=== PATIENT | female | born 1930 | race Caucasian/White ===

== ENCOUNTER 2017-03-01 21:15 | Emergency (ER) | payer MEDICARE, BC ==
--- NOTE | 2017-03-01 21:25 | ED ---
Head Injury - HPI Summary HPI Summary: 86 year old female presents with complains of right sided head injury with perfuse bleeding. I will send her to the ER for a head CT. - History Of Current Complaint Stated Complaint: FALL-HEAD INJURY Time Seen by Provider: 03/01/17 21:19 - Allergies/Home Medications Allergies/Adverse Reactions: Allergies Allergy/AdvReac Type Severity Reaction Status Date / Time Sulfa Antibiotics Allergy Rash Verified 03/01/17 22:45 PMH/Surg Hx/FS Hx/Imm Hx Previously Healthy: Yes - Cancer History Hx Chemotherapy: No Hx Radiation Therapy: Yes - Surgical History Surgery Procedure, Year, and Place: RIGHT LUMPECTOMY 2010 Review of Systems Constitutional: Negative Positive: Fatigue Eyes: Negative ENT: Negative Cardiovascular: Negative Respiratory: Negative Gastrointestinal: Negative Genitourinary: Negative All Other Systems Reviewed And Are Negative: Yes Physical Exam Triage Information Reviewed: Yes Appearance: Positive: Ill-Appearing, Pain Distress Head Injury Course/Dx - Diagnoses Provider Diagnoses: Head injury due to trauma Discharge - Discharge Plan Condition: Guarded Disposition: AGAINST MEDICAL ADVICE Patient Education Materials: Concussion (ED), Fall Prevention (ED) Referrals: Teresa Beal MD [Primary Care Provider] -
[2017-03-01 21:26] VITALS: BP 180/70
== END 2017-03-01 21:34 | disposition left against medical advice (07) ==
LOC: UCEAST 21:15
DX: S09.90XA Unspecified injury of head, initial encounter (principal); W19.XXXA Unspecified fall, initial encounter; Y93.9 Activity, unspecified; Y92.9 Unspecified place or not applicable; Z88.2 Allergy status to sulfonamides; R53.83 Other fatigue
CPT/HCPCS: 99211; G0463

== ENCOUNTER 2017-03-01 22:42 | Emergency (ER) | payer BC, MEDICARE ==
--- NOTE | 2017-03-02 00:38 | ED ---
Head Injury - HPI Summary HPI Summary: 86 female presents from [facility] with complaints of sustaining a head injury just prior to arrival around 7:30pm. She was gardening and rolling a bird cage, bending over and took a tumble striking the right front scalp on the corner of her house. She sustained a small laceration from the impact that she attempted to stop the bleeding with a band-aid however was unsuccessful. Admits to some bruising at area of impact. Bleeding has since subsided. Patient denied visual changes, LOC, memory loss, nausea, vomiting and headache. Denies anticoagulant use. No PMHx or medication. Denies any pain other than a slight ache in the right lower rib area. Patient states she thinks she hit it on a small metal fencing that surrounds her garden. Movement and palpation makes this pain worse. Denies pain on deep breaths. No other complaints at this time. - History Of Current Complaint Chief Complaint: EDHeadache Stated Complaint: FALL/HEAD INJURY Time Seen by Provider: 03/01/17 22:51 Hx Obtained From: Patient Mechanism Of Injury: Blunt Trauma - on corner of house Onset/Duration: Started Hours Ago, Traumatic, Still Present Onset of Pain: Immediate Severity Currently: None Severity Initially: Mild Pain Intensity: 0 Pain Scale Used: 0-10 Numeric Location of Head Injury: Frontal - right, Parietal - right Location: Discrete At: - right frontal scalp Character: Dull Associated Signs And Symptoms: Negative, Bruising - Allergies/Home Medications Allergies/Adverse Reactions: Allergies Allergy/AdvReac Type Severity Reaction Status Date / Time Sulfa Antibiotics Allergy Rash Verified 03/01/17 22:45 PMH/Surg Hx/FS Hx/Imm Hx Endocrine/Hematology History: Denies: Hx Anticoagulant Therapy Cardiovascular History: Denies: Hx Hypertension Respiratory History: Denies: Hx Asthma - Cancer History Hx Chemotherapy: No Hx Radiation Therapy: Yes - Surgical History Surgery Procedure, Year, and Place: RIGHT LUMPECTOMY 2010 - Immunization History Date of Tetanus Vaccine: UTD per patient Immunizations Up to Date: Yes Infectious Disease History: No Infectious Disease History: Denies: Hx Clostridium Difficile, Hx Hepatitis, Hx Human Immunodeficiency Virus (HIV), Hx of Known/Suspected MRSA, Hx Shingles, Hx Tuberculosis, Hx Known/ Suspected VRE, Hx Known/Suspected VRSA, History Other Infectious Disease, Traveled Outside the [place] in Last 30 Days - Family History Known Family History: Positive: None - Social History Alcohol Use: Daily Alcohol Amount: 1 glass wine Substance Use Type: Reports: None Smoking Status (MU): Never Smoked Tobacco Review of Systems Constitutional: Negative Positive: Other - right rib tenderness Respiratory: Negative Gastrointestinal: Negative Musculoskeletal: Negative Positive: Other - laceration Neurological: Negative All Other Systems Reviewed And Are Negative: Yes Physical Exam Triage Information Reviewed: Yes Vital Signs On Initial Exam: Initial Vitals Temp Pulse Resp BP Pulse Ox 98.1 F 74 16 152/61 98 03/01/17 22:48 03/01/17 22:48 03/01/17 22:48 03/01/17 22:48 03/01/17 22:48 Vital Signs Reviewed: Yes Appearance: Positive: Well-Appearing, No Pain Distress, Well-Nourished Skin: Positive: Warm, Skin Color Reflects Adequate Perfusion, Dry, Other - 1.5- 2cm laceration at right frontal scalp no bleeding or FB. very superficial epidermal layer. linear without complication. Negative: Cold, Numb, Cyanosis @ , Pale, Erythema @ Head/Face: Positive: Normal Head/Face Inspection, Scalp - bruising and small hematoma noted at right front scalp at area of laceration from impact. rest of scalp normal., Other - no epistaxis, battles signs, racoon eyes or facial bone tenderness Eyes: Positive: EOMI, ROBE, Conjunctiva Clear ENT: Positive: Normal ENT inspection, Hearing grossly normal, Pharynx normal, TMs normal Dental: Positive: Other - did not bite tongue, no dental fractures Neck: Positive: Supple, Nontender Respiratory/Lung Sounds: Positive: Clear to Auscultation, Breath Sounds Present. Negative: Rales, Rhonchi, Wheezes Cardiovascular: Positive: Normal, RRR, Pulses are Symmetrical in both Upper and Lower Extremities. Negative: Murmur, Rub Bowel Sounds: Positive: Present Musculoskeletal: Positive: Normal, Strength/ROM Intact, Pain @ - minimal, at right lower rib 12 area on palpation no sign of obvious deformity, crepitus or step off Neurological: Positive: Normal, Sensory/Motor Intact, Alert, Oriented to Person Place, Time, CN Intact II-III, Reflexes Intact, NV Bundle Intact Distally, Normal Gait Psychiatric: Positive: Affect/Mood Appropriate - [place] Coma Scale Best Eye Response: 4 - Spontaneous Best Motor Response: 6 - Obeys Commands Best Verbal Response: 5 - Oriented Coma Scale Total: 15 Procedures - Laceration/Wound Repair 1 Location: head - frontal scalp Description: Linear Length, Depth and Shape: 1.5-2cm, linear, superficial epidermal layer Betadine Prep?: No Irrigated w/ Saline (ccs): 200 Laceration/Wound Explored: clean, no foreign body removed Closure: Ruben #__ - 2 Sterile Dressing Applied?: Yes Diagnostics - Vital Signs Vital Signs Temp Pulse Resp BP Pulse Ox 03/01/17 22:48 98.1 F 74 16 152/61 98 - Laboratory Lab Statement: Any lab studies that have been ordered have been reviewed, and results considered in the medical decision making process. - Radiology right rib Xray Interpretation: No Acute Changes Radiology Interpretation Completed By: ED Physician - Dr Bryant and myself - CT brain wo CT Interpretation: No Acute Changes - involutional changes. chronic microvascular changes in the cerebral white matter. no hemorrhage. no mass. very tiny lacunar infarct right caudate head indeterminate age. otherwise no visible infarct. osseous structures are intact. CT Interpretation Completed By: Radiologist Head Injury Course/Dx Course Of Treatment: CT brain and rib x-ray obtained and negative. Laceration was stapled without complication after irrigation. tolerated procedure well. tetanus was up to date per patient as she lives at [facility], states she will double check tomorrow. no pain at this time. told to take otc analgesia if pain or discomfort. given ibuprofen while in ED for right rib discomfort. ice and rest. do not scrub laceration/ruben. have removed in 5 days. aware of worsening signs and symptoms such as infection. follow up pcp. - Diagnoses Differential Diagnosis/HQI/PQRI: Cerebral Contusion, Concussion Without LOC, Contusion, Hematoma, Laceration, Skull Fracture, Other - rib fracture Provider Diagnoses: Hematoma of frontal scalp, Laceration of scalp without complication Discharge - Discharge Plan Condition: Stable Disposition: HOME Patient Education Materials: Laceration (ED), Head Injury (ED), Staple Care (ED ) Referrals: Teresa Beal MD [Primary Care Provider] - Additional Instructions: Take ibuprofen for pain and inflammation as desired. Take with food. Keep laceration clean and dry. Do not scrub ruben. Do not get wet for 24 hours. Watch for worsening signs such as infection. Follow up with PCP and have ruben removed in 5-7 days. Rest and drink plenty of fluids. Apply ice to scalp and rib area to help soothe pain.
[2017-03-02] MEDS ORDERED: Ibuprofen TAB* 600 MG PO ONE (01:00)
[2017-03-02 02:33] VITALS: BP 140/64
--- NOTE | 2017-03-02 07:29 | RAD ---
INDICATION: Head injury. COMPARISON: There are no prior studies available for comparison. TECHNIQUE: Contiguous axial sections of the brain were obtained from the skull base to the vertex without contrast. FINDINGS: The ventricles, cisterns and sulci are enlarged consistent with age-related atrophy. There are small areas of decreased density in the subcortical and periventricular white matter suggestive of mild chronic small vessel ischemic changes. There is no evidence for hemorrhage. There is a tiny hypodense area present within the right caudate nucleus head measuring 2 mm in size consistent with a lacunar infarct, age indeterminate. There is soft tissue swelling in the scalp anterior to the right frontal bone. No fracture is seen. The visualized portion of the paranasal sinuses and mastoid air cells appear clear. 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
--- NOTE | 2017-03-02 07:32 | RAD ---
INDICATION: Right rib injury. COMPARISON: There are no prior studies available for comparison. TECHNIQUE: 4 views of the right ribs and dual-energy PA views of the chest were obtained. FINDINGS: The exam is limited due to osteopenia. No acute fracture is seen. The heart is within normal limits in size. The lungs are hyperinflated and clear. No pleural effusion or pneumothorax is seen. Several surgical clips are noted in the right axillary region consistent with a prior axillary node dissection. IMPRESSION: LIMITED STUDY, NO EVIDENCE FOR FRACTURE.
== END 2017-03-02 02:34 | disposition home or self-care (01) ==
LOC: ED 22:42
DX: S01.01XA Laceration without foreign body of scalp, initial encounter (principal); S00.03XA Contusion of scalp, initial encounter; W19.XXXA Unspecified fall, initial encounter; Y93.9 Activity, unspecified; Y92.9 Unspecified place or not applicable; Y99.8 Other external cause status
CPT/HCPCS: 12011; 70450; 99282; A9270-GY

== ENCOUNTER 2017-11-02 10:26 | Emergency (ER) | payer MEDICARE, BC, OTHER ==
[2017-11-02 11:06] VITALS: BP 120/57
--- NOTE | 2017-11-02 11:51 | RAD ---
HISTORY: Knee injury COMPARISONS: None VIEWS: 4, Frontal, lateral, axial, and oblique views of the right knee FINDINGS: BONE DENSITY: There is diffuse osteopenia. BONES: On axial images, there is a linear lucency suggestive of a nonspecific fracture of the medial patella. JOINTS: There is a moderate suprapatellar joint effusion. There is moderate tract from dental osteoarthritis. ALIGNMENT: There is no dislocation. SOFT TISSUES: Unremarkable. OTHER FINDINGS: None. IMPRESSION: 1. PROBABLE NONDISPLACED FRACTURE OF THE MEDIAL PATELLA. 2. JOINT EFFUSION. 3. OSTEOPENIA. 4. OSTEOARTHRITIS
--- NOTE | 2017-11-02 12:43 | UC ---
Lower Extremity/Ankle HPI - HPI Summary HPI Summary: Patient is an 87-year-old female with history of bilateral hip replacements presents to the with right knee pain after a fall yesterday. She states she landed directly atop the anterior knee, but endorses medial and posterior knee pain. Symptoms are aggravated with flexion and extension, better with rest and full extension without hyperextension. Denies any pain at rest, endorses 8 out of 10 pain with ambulation. She continues to be ambulatory, but has needed her walker for support. She also has a wheelchair. Denies any numbness or tingling , color or temperature changes. There is a slight amount of swelling to the knee. - History of Current Complaint Chief Complaint: UCLowerExtremity Stated Complaint: KNEE INJURY Time Seen by Provider: 11/02/17 11:04 Hx Obtained From: Patient ?: No Onset/Duration: Sudden Onset Severity Initially: Moderate Severity Currently: Moderate Pain Intensity: 6 Pain Scale Used: 0-10 Numeric Aggravating Factor(s): Standing, Ambulation Alleviating Factor(s): Rest, Elevation Able to Bear Weight: Yes - Risk Factors Gout Risk Factors: Age Over 40 DVT Risk Factors: Negative Septic Arthritis Risk Factor: Extremes of Age - Allergies/Home Medications Allergies/Adverse Reactions: Allergies Allergy/AdvReac Type Severity Reaction Status Date / Time Sulfa (Sulfonamide Allergy Rash Verified 11/02/17 10:43 Antibiotics) Home Medications: Home Medications Calcium 600 + Vit D Tablet 1 tab PO DAILY 11/02/17 [History Confirmed 11/02/17] Calcium Polycarbophil TAB* [Fibercon TAB*] 625 mg PO DAILY 11/02/17 [History Confirmed 11/02/17] PMH/Surg Hx/FS Hx/Imm Hx Previously Healthy: Yes Other History Of: Negative For: Anticoagulant Therapy - Surgical History Surgical History: Yes Surgery Procedure, Year, and Place: RIGHT LUMPECTOMY 2010,laminectomy,right hip replacement,left hip replacement 2017 - Family History Known Family History: Positive: None - Social History Occupation: Unemployed Lives: Assisted Living Alcohol Use: Rare Alcohol Amount: 1 glass wine Substance Use Type: None Smoking Status (MU): Never Smoked Tobacco Have You Smoked in the Last Year: No Review of Systems Constitutional: Negative - Not nursing Skin: Negative Respiratory: Negative Cardiovascular: Negative Motor: Decreased ROM Neurovascular: Negative Musculoskeletal: Arthralgia Neurological: Negative Psychological: Negative Is Patient Immunocompromised?: No All Other Systems Reviewed And Are Negative: Yes Physical Exam Triage Information Reviewed: Yes Appearance: Well-Appearing, Well-Nourished Vital Signs: Initial Vital Signs Temp 97.5 F 11/02/17 10:46 Pulse 74 11/02/17 10:46 Resp 16 11/02/17 10:46 BP 120/57 11/02/17 10:46 Pulse Ox 99 11/02/17 10:46 Vital Signs Reviewed: Yes Eye Exam: Normal Eyes: Positive: Conjunctiva Clear Neck exam: Normal Neck: Positive: Nontender Respiratory Exam: Normal Respiratory: Positive: Chest non-tender, Lungs clear Cardiovascular Exam: Normal Cardiovascular: Positive: RRR, No Murmur Musculoskeletal: Positive: ROM Limited @ - flexion and extension of knee d/t pain; anterior and posterior drawer tests not performed. Wesley's not performed due to pain Psychological Exam: Normal Psychological: Positive: Normal Response To Family Skin Exam: Normal Lower Extremity Course/Dx - Course Course Of Treatment: The course of treatment, the patient's evaluated for right knee pain after a fall yesterday. S/p bilateral hip replacements. She has never injured the knee before. She remains ambulatory, but with pain. She has been using her walker and endorses swelling to the knee. X-ray obtained which shows a medial patellar fracture. Due to the patient's age, I was unsure if she would require a knee immobilizer so I have called Dr. Choi. He recommends a knee immobilizer, a walker and wheelchair. She has a walker and a wheelchair as she lives at [facility]. Discussed this plan with patient and she is okay with plan and discharged. She will call ortho today for an appointment. I've also recommended 600 mg ibuprofen and elevation. - Differential Dx/Diagnosis Provider Diagnoses: Patellar fracture Discharge - Sign-Out/Discharge Documenting (check all that apply): Discharge - Discharge Plan Condition: Stable Disposition: HOME Prescriptions: Ibuprofen 600 mg PO TID PRN #30 tablet MDD 3 PRN Reason: Pain Patient Education Materials: Patellar Fracture (ED) Referrals: Teresa Beal MD [Primary Care Provider] - Jennifer Castellanos MD [Medical Doctor] - Additional Instructions: Please follow up with Dr. Castellanos Call today for an appt Continue with knee immobilizer Use your walker Use the wheelchair when possible Ibuprofen 600mg three times daily for inflammation ice Elevate - Billing Disposition and Condition Condition: STABLE Disposition: HOME
== END 2017-11-02 12:25 | disposition home or self-care (01) ==
LOC: UCEAST 10:26
DX: S89.91XA Unspecified injury of right lower leg, initial encounter (principal); W19.XXXA Unspecified fall, initial encounter; Y93.9 Activity, unspecified; Y92.9 Unspecified place or not applicable; M25.461 Effusion, right knee; M17.11 Unilateral primary osteoarthritis, right knee; Z96.643 Presence of artificial hip joint, bilateral; Z88.2 Allergy status to sulfonamides; M85.861 Other specified disorders of bone density and structure, right lower leg
CPT/HCPCS: 99213; G0463

== ENCOUNTER 2019-07-16 15:02 | Inpatient (IN) | payer MEDICARE, BC ==
--- NOTE | 2019-07-16 15:26 | ED ---
Lower Extremity - HPI Summary HPI Summary: The patient is an 89 y/o F arriving by ambulance to [facility] from [facility] with a chief complaint of immediate onset left hip pain after sustaining a mechanical fall this afternoon. She reports that she was getting ready for a meeting and getting a coat out the closet when she turned around and slipped on the rug, causing her to fall on the left thigh. She endorses decreased ROM in the LLE, but she denies any head injury, LOC, knee pain, or numbness in the LLE. Currently, her pain is rated 1/10 in severity while at rest. Pain is aggravated with movement. PMHx: bilateral hip replacements. Nonsmoker, rare EtOH, no substance use. Medications reviewed. Allergies noted. - History of Current Complaint Chief Complaint: EDFall Stated Complaint: LEFT HIP FRACTURE PER EMS Time Seen by Provider: 07/16/19 15:09 Hx Obtained From: Patient Mechanism Of Injury: Fall From A Standing Position Onset of Pain: Immediate Onset/Duration: Still Present Severity Initially: Severe Severity Currently: Mild Pain Intensity: 1 Pain Scale Used: 0-10 Numeric Timing: Constant Location: Is Discrete @ - left hip Character Of Pain: Sharp Associated Signs And Symptoms: Positive: Other - decreased ROM in LLE; Negative : numbness in LLE, head injury, LOC. Negative: Knee Pain Aggravating Factor(s): Movement Alleviating Factor(s): Rest Able to Bear Weight: No - Allergies/Home Medications Allergies/Adverse Reactions: Allergies Allergy/AdvReac Type Severity Reaction Status Date / Time metronidazole [From Flagyl] Allergy Unknown Verified 07/16/19 15:23 Reaction Details mold Allergy Unknown Verified 07/16/19 15:23 Reaction Details Sulfa (Sulfonamide Allergy Rash Verified 07/16/19 15:22 Antibiotics) PMH/Surg Hx/FS Hx/Imm Hx Endocrine/Hematology History: Denies: Hx Anticoagulant Therapy Cardiovascular History: Denies: Hx Hypertension Respiratory History: Denies: Hx Asthma Musculoskeletal History: Reports: Other Musculoskeletal History - bilateral hip replacements - Cancer History Cancer Type, Location and Year: breast cancer back pain Hx Chemotherapy: No Hx Radiation Therapy: Yes - Surgical History Surgical History: Yes Surgery Procedure, Year, and Place: RIGHT LUMPECTOMY 2010,laminectomy,right hip replacement,left hip replacement 2016 - Immunization History Date of Tetanus Vaccine: UTD per patient Infectious Disease History: No Infectious Disease History: Denies: Hx Clostridium Difficile, Hx Hepatitis, Hx Human Immunodeficiency Virus (HIV), Hx of Known/Suspected MRSA, Hx Shingles, Hx Tuberculosis, Hx Known/ Suspected VRE, Hx Known/Suspected VRSA, History Other Infectious Disease, Traveled Outside the [place] in Last 30 Days - Family History Known Family History: Negative: Cardiac Disease, Hypertension, Diabetes - Social History Alcohol Use: Rare Alcohol Amount: 1 glass wine Hx Substance Use: No Substance Use Type: Reports: None Hx Tobacco Use: No Smoking Status (MU): Never Smoked Tobacco Have You Smoked in the Last Year: No Review of Systems Positive: Arthralgia - left hip, Decreased ROM - LLE secondary to pain. Negative: Other - knee pain Neurological: Other - Negative: head injury, LOC Negative: Numbness - in LLE All Other Systems Reviewed And Are Negative: Yes Physical Exam - Summary Physical Exam Summary: Constitutional: Well-developed, Well-nourished, Alert. (-) Distressed Skin: Warm, Dry HENT: Normocephalic; Atraumatic Eyes: Conjunctiva normal Neck: Musculoskeletal ROM normal neck. (-) JVD, (-) Stridor, (-) Tracheal deviation Cardio: Rhythm regular, rate normal, Heart sounds normal; Intact distal pulses; Radial pulses are 2+ and symmetric. (-) Murmur Pulmonary/Chest wall: Effort normal. (-) Respiratory distress, (-) Wheezes, (-) Rales Abd: Soft, (-) tenderness, (-) Distension, (-) Guarding, (-) Rebound Musculoskeletal: Tenderness on the lateral aspect of the left hip, Left leg is externally rotates and shortened, 2+ DP/PT pulses. (-) Edema Lymph: (-) Cervical adenopathy Neuro: Alert, Oriented x3 Psych: Mood and affect Normal Triage Information Reviewed: Yes Vital Signs On Initial Exam: Initial Vitals Temp Pulse Resp BP Pulse Ox 97.3 F 62 17 168/68 99 07/16/19 15:09 07/16/19 15:09 07/16/19 15:09 07/16/19 15:09 07/16/19 15:09 Vital Signs Reviewed: Yes Procedures - Sedation Patient Received Moderate/Deep Sedation with Procedure: No Diagnostics - Vital Signs Vital Signs Temp Pulse Resp BP Pulse Ox 07/16/19 15:09 97.3 F 62 17 168/68 99 - Laboratory Result Diagrams: 07/16/19 15:37 07/16/19 15:37 Lab Statement: Any lab studies that have been ordered have been reviewed, and results considered in the medical decision making process. - Radiology Hip/Pelvis XR Radiology Interpretation Completed By: Radiologist Summary of Radiographic Findings: Impression: Displaced left periprosthetic femoral shaft fracture as above. ED physician has reviewed this imaging report. L Femur XR Radiology Interpretation Completed By: Radiologist Summary of Radiographic Findings: Impression: Displaced left periprosthetic femoral shaft fracture as above. ED physician has reviewed this imaging report. CXR Radiology Interpretation Completed By: Radiologist Summary of Radiographic Findings: Impression: No acute cardiopulmonary process by radiograph. ED physician has reviewed this imaging report. - CT Pelvis CT CT Interpretation Completed By: Radiologist Summary of CT Findings: Impression: There is acute displaced fracture in the proximal shaft of the left femur including at the level of the left femoral prosthesis. ED physician has reviewed this imaging report. LLE CT CT Interpretation Completed By: Radiologist Summary of CT Findings: Impression: 1. There is acute displaced fracture of the proximal shaft of the left femur including fractures extending to the intramedullary stem of the left femoral prosthesis. 2. There is some soft tissue emphysema and likely edematous change or possible intramuscular hemorrhage surrounding the fracture site which is somewhat obscured by metallic streak artifact however. ED physician has reviewed this imaging report. - EKG 1530 Cardiac Rate: Bradycardia - 51 bpm EKG Rhythm: Sinus Bradycardia Summary of EKG Findings: An EKG at 1530 reveals sinus bradycardia at 51 bpm. No STEMI. ED physician has reviewed and interpreted this EKG. Re-Evaluation - Re-Evaluation First Eval Re-Evaluation Time: 16:58 Comment: We discussed imaging results and plan for CTs. Second Eval Re-Evaluation Time: 18:00 Comment: We discussed CT results and plan for admission for surgery. Lower Extremity Course/Dx - Course Course Of Treatment: Patient is here with a periprosthetic femur fracture on the left. Patient was overall well-appearing and is neurovascular intact distally. Patient declined any pain medication. Patient had an x-ray which showed a femur fracture. Patient had a further CT scan for characterization. Dr. Rodriguez saw the films and thinks patient can be admitted here. Patient was admitted to the hospitalist. - Diagnoses Provider Diagnoses: Femur fracture, left, Fall - Physician Notifications Discussed Care Of Patient With: Peyman Grant - orthopedics Time Discussed With Above Provider: 16:55 Instructed by Provider To: Other - I discussed the patient's case with Dr. Grant. He suggests Pelvis and LLE CTs and to hold off on admission because the patient may need to be transferred. Following CT results, Dr. Grant recommends admission for surgery at 1755. Dr. Salas, hospitalist, accepts patient for admission at 1815. Discharge ED - Sign-Out/Discharge Documenting (check all that apply): Patient Departure - Patient accepted for admission by Dr. Salas. - Discharge Plan Condition: Stable Disposition: ADMITTED TO [facility] Referrals: Teresa Beal MD [Primary Care Provider] - - Billing Disposition and Condition Condition: STABLE Disposition: Admitted to [facility] - Attestation Statements Document Initiated by Mague: Yes Documenting Scribe: Linda Borges Provider For Whom Mague is Documenting (Include Credential): Dr. Marquez Vargas MD Scribe Attestation: Linda Loza, scribed for Dr. Marquez Vargas MD on 07/16/19 at 2013. Scribe Documentation Reviewed: Yes Provider Attestation: The documentation as recorded by the Linda sethi accurately reflects the service I personally performed and the decisions made by me, Dr. Marquez Vargas MD Status of Scribe Document: Viewed
[2019-07-16 16:04] LABS: ABS Lymphocytes 0.5 10^3/ul (1.0-4.8); ABS Monocytes 0.5 10^3/ul (0-0.8); ABS Neutrophils 7.3 10^3/ul (1.5-7.7); Eosinophil % 0.5 %; Hematocrit 38 % (35-47); Hemoglobin 12.9 g/dL (12.0-16.0); Lymphocyte % 6.1 %; Mean Corpuscular HGB Conc 34 g/dL (31-36); Mean Corpuscular Hemoglobin 28 pg (27-31); Mean Corpuscular Volume 82 fL (80-97); Mean Platelet Volume 9.5 fL (7.4-10.4); Nucleated Red Blood Cells % 0.2; Platelet Count 181 10^3/uL (150-450); Red Blood Count 4.69 10^6 /uL (3.70-4.87); Red Cell Distribution Width 16 % (10-15); White Blood Count 8.3 10^3/uL (3.5-10.8)
[2019-07-16 16:12] LABS: INR 1.03 (0.82-1.09)
[2019-07-16 16:31] LABS: Albumin 3.6 g/dL (3.2-5.2); Albumin/Globulin Ratio 1.1 (1-3); BUN/Creatinine Ratio 22.2 (8-20); Calcium 9.2 mg/dL (8.6-10.3); EGFR African American 92.3 (>60); EGFR Non-African American 76.3 (>60); Globulin 3.2 g/dL (2-4); Total Bilirubin 0.5 mg/dL (0.2-1.0); Total Protein 6.8 g/dL (6.4-8.9)
[2019-07-16 19:38] LABS: Urine Appearance Cloudy; Urine Bilirubin Negative (Negative); Urine Blood Negative (Negative); Urine Color Yellow; Urine Glucose Negative (Negative); Urine Ketones Trace (Negative); Urine Nitrite Negative (Negative); Urine Protein Negative (Negative); Urine Specific Gravity 1.012 (1.010-1.030); Urine Urobilinogen Negative (Negative)
[2019-07-16] MEDS ORDERED: Ondansetron INJ* 2 MG/ML VIAL IV PRN (21:19)
--- NOTE | 2019-07-16 21:56 | CONS ---
CONSULTATION NOTE: DATE OF CONSULT: 07/16/19 REASON FOR CONSULTATION: Left hip or femur fracture. HISTORY OF PRESENT ILLNESS: The patient is an 89-year-old woman, who lives alone at the [facility], who ambulates with assist when outside the home, who presented to the emergency room at [facility] with a complaint of left lower extremity pain after a mechanical fall at home at 1:45 today, 07/16/19. The patient has a history of bilateral total hip arthroplasty. These were done in [facility]. The last was done in approximately [address] Morales. The patient did not have left hip or thigh pain prior to the fall. The patient lives alone. She lives in independent living at the [facility]. She lives in a cottage there. At 1:45 this afternoon, the patient was going to go to a meeting. She went to a closet and believes she tripped on a mat near her front door. She fell and landed hard on her left hip and femur. The patient could not move her left foot and had significant pain. She pressed a safety pendent and help came and brought her to the emergency room. The patient states that she is currently, in the emergency room on a stretcher, comfortable, not in significant pain, although she acknowledges that this is because she is not moving her left lower extremity. PAST MEDICAL HISTORY: None. PAST SURGICAL HISTORY: Lumbar laminectomy, bilateral hip arthroplasty surgery. MEDICATIONS: 1. Vitamin C. 2. Vitamin D. 3. Calcium. 4. FiberCon. ALLERGIES: SULFA (rash). FAMILY HISTORY: Noncontributory. SOCIAL HISTORY: The patient lives alone. No family in the area. The patient has a daughter who lives in [place] and is a teacher. That daughter might come up to [place] this weekend to help the patient. REVIEW OF SYSTEMS: The patient denies numbness and tingling. She describes some pain dull about the left hip and femur and is loathe to move the left lower extremity, but otherwise 14-point review of systems was negative. No other injury sustained in the fall. PHYSICAL EXAM: In no acute distress, alert and oriented, appropriate mood and affect, appropriate dress and hygiene. Vitals at 7:31 p.m. this evening, her body temperature 98.3 degrees Fahrenheit, heart rate 72, blood pressure 143/74, respirations 15 per minute and oxygen saturation 96% on room air. The left lower extremity is clearly shortened and externally rotated significantly. There is no significant swelling or ecchymosis about the left thigh. The patient has sensation fully intact left foot and ankle. The patient is able to flex and extend all toes left foot and flex and extend left ankle with no significant pain. DIAGNOSTIC STUDIES/LAB DATA: Imaging: X-rays, pelvis and femur reviewed by me first obtained today. These show a left total hip arthroplasty in place. It appears to be well fixed. Question of pelvis fracture versus heterotopic ossification proximal to the cup of the implant. A clear periprosthetic fracture, present towards the end of the implant, with shortening, posterior translation, posterior apex angulation and rotational deformity. I requested that the emergency department to order CT scan of the pelvis and thigh and to better assess fracture anatomy, to determine whether the implant was stable, and also to look for any possible pelvic fracture. I reviewed these images and radiology report. It appears that the spike of bone above the cup is some heterotopic ossification, old. No evidence of loosening of the cup and no acetabulum or pelvis fracture. Femoral stem on these films appears well seated. Fracture line is seen to propagate within 4 cm of the lesser trochanter. There is no displacement of the bone in that more proximal fracture line. The major component of the fracture line is short oblique and present within several centimeters of the distal tip of the femoral implant. As demonstrated on x-ray, there is clear shortening, rotation, translational displacement and angulation at this fracture site. Radiologist refers to a hematoma and that is certainly not surprising. ASSESSMENT: Left periprosthetic femur fracture in the context of left total hip arthroplasty placed in approximately 2014. PLAN: 1. I described the fracture to the patient and mapped out the total hip arthroplasty anatomy and the fracture anatomy to the patient. 2. I described the patient's need for surgery, the large incision required and that the patient will require a large long plate with screws and cerclage wires. We discussed preoperative course, perioperative course, immediate postoperative course in the hospital, need for limit to weightbearing postoperatively and a need for assist device postoperatively. 3. The hospitalist service is admitting the patient and I thank them. They will assess the patient's fitness for surgery. The patient did mention that her primary care doctor saw her prior to her 2015 left total hip arthroplasty and recommended that Dr. Deutsch of Cardiology see her. According to the patient , Dr. Deutsch told the patient that by echocardiogram the patient had a wall of the heart that was especially thick. This is not a contraindication of surgery at this time. I defer to hospitalist as to whether a new cardiology consult for optimization and clearances required for this patient. Fortunately, this patient seems relatively healthy, not taking essentially any medications other than vitamins. 4. The patient is nonweightbearing now, on bedrest. I would consider traction , bedside, to keep the patient from shortening at that fracture too much; however, given the patient's comfort level and lack of pain now, I do not think we need to that as she would likely be in significantly more pain if we put her into traction. 5. Timing of surgery, open reduction internal fixation left periprosthetic femur with long lateral plate, will depend on operating room availability, surgeon availability and hospitalist and possibly cardiology optimization and clearance. 6. The patient can be made n.p.o. after midnight just in case surgery is Monday, but I foresee it being more like that the surgery will be or Monday evening. 7. I provided my cell phone number to the patient, so she or her daughter are welcome to reach out to me directly by phone anytime. [id number]/[facility] #: [id number] TOM
[2019-07-17] MEDS: NS 0.9% 1000 ML** 1,000 ML IV SCH ×2 (01:00→14:17)
--- NOTE | 2019-07-17 09:08 | HP ---
CC: Dr. Teresa Beal; Dr. Grant.* ADMISSION HISTORY AND PHYSICAL: DATE OF ADMISSION: 07/16/19 CHIEF COMPLAINT: Fall. HISTORY OF PRESENT ILLNESS: Ms. Otero is an 89-year-old woman who was in her cottage at [facility] this evening when she was getting ready to go to a meeting at the main building when she turned and tripped over the edge of a mat and fell to the floor onto her left thigh. When she was in the ground, she felt that she could not move her left foot at all and she could not get up at all due to severe pain in the left thigh. She called for help with the pendant that she was wearing and the nursing supervisor aircraft cleaning came to check on her in her apartment. The patient denies any syncope or chest pain. The patient also denies palpitations. The patient had her left hip replaced in 2015 at the [facility] in [place]. PAST MEDICAL HISTORY: Includes Raynaud's syndrome; diverticulosis; spinal stenosis; hyperlipidemia; history of right-sided breast cancer, status post lumpectomy, radiation. PAST SURGICAL HISTORY: Lumpectomy, right breast in 2011; left hip replacement in 2011; lumbar laminectomy and pelvic sling operation. MEDICATIONS ON ADMISSION: 1. Vitamin D with calcium 1 tab p.o. daily. 2. Calcium polycarbophil 625 mg p.o. daily. ALLERGIES: METRONIDAZOLE and SULFA. FAMILY HISTORY: Notable for father of [place] at age 50. Son of sudden attributed to sleep apnea. Brother of old age. Mother had breast cancer. 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 She is . She has 2 children, her daughter Angeles is her healthcare proxy. She never smoked. She drinks alcohol about 1 drink of wine per day. No recreational drugs. REVIEW OF SYSTEMS: The patient denies any fevers, weight loss, anorexia. The patient denies any chest pain or palpitations. The patient denies any cough, hemoptysis, shortness of breath. Remainder of her 14 point review of systems negative other than mentioned in the HPI. PHYSICAL EXAMINATION GENERAL: She is elderly woman, in no acute distress. VITAL SIGNS: Temperature is 36.8, pulse 72, respirations 16, blood pressure is 143/74, oxygen saturation 96%. HEENT: Head is normocephalic, atraumatic. Sclerae anicteric. Pupils are equal , round and reactive to light and accommodation. Oropharynx is moist. No lesions. NECK: No JVD. No carotid bruit. No thyromegaly. LUNGS: Clear to auscultation and percussion bilaterally. HEART: Regular rhythm without murmurs or gallops. ABDOMEN: Soft, nontender. Positive bowel sounds. No hepatosplenomegaly. EXTREMITIES: No peripheral edema. Dorsalis pedis pulses are 2+ bilaterally. Left hip is externally rotated. NEUROLOGIC: Cranial nerves II through XII are intact. Motor strength is 5/5 in the upper extremities bilaterally. She can wiggle her toes in the lower extremities bilateral. She is alert and oriented x3. DIAGNOSTIC STUDIES/LAB DATA: Sodium 138, potassium 4.0, chloride 104, bicarb 29, BUN 16, creatinine 0.72, glucose 122, calcium 9.2. Albumin 3.6, AST 17, ALT 11, bilirubin 0.5, INR 1.03. White count 8.3, hemoglobin 12.9, hematocrit 38% platelets 181. EKG shows sinus bradycardia, no ischemic ST or T wave changes. Chest x-ray is negative for infiltrates or effusions. Pelvis CT shows left femur periprosthetic fracture. A lower extremity CT further defines the same periprosthetic fracture in the proximal femoral shaft and also demonstrates some emphysema and hemorrhage around that site. ASSESSMENT AND PLAN: An 89-year-old woman with traumatic periprosthetic femur fracture. She was seen by Dr. Grant in the emergency room and he is planning to take her to the operating room as soon as possible which I believe is appropriate. She will have increasing risk of weakness, immobility, and pneumonia if she stays in bed for days. Her preop assessment EKG is normal. Her relative cardiac risk index (RCRI) places her at class I low risk patient for surgery. She should proceed as soon as possible with the open reduction internal fixation under general or regional anesthesia. Code status is do not resuscitate in general, but she agrees to suspended this for the surgery. MOLST form is attached in the chart. For DVT prophylaxis, we will give her sequential compression devices for now and she can have Lovenox after the procedure. [id number]/[facility] #: [id number] [facility]
[2019-07-17] MEDS: Calcium Polycarbophil TAB* 625 MG PO SCH (09:23)
[2019-07-17] MEDS ORDERED: Senna TAB 8.6 mg* TAB PO PRN (11:07)
[2019-07-17] MEDS ORDERED: Magnesium Hydroxide LIQ* 30 ML UDC PO PRN (11:07)
[2019-07-17] MEDS ORDERED: Polyethylene Glycol 3350* 17 GM PACKET PO PRN (11:07)
[2019-07-17] MEDS: Acetaminophen TAB* 325 MG PO PRN (11:42)
[2019-07-17] MEDS: traMADol TAB* 50 MG PO PRN ×2 (11:43→22:05)
[2019-07-17 12:22] LABS: ABS Lymphocytes 0.9 10^3/ul (1.0-4.8); ABS Monocytes 0.7 10^3/ul (0-0.8); ABS Neutrophils 5.5 10^3/ul (1.5-7.7); Eosinophil % 0.6 %; Hematocrit 37 % (35-47); Hemoglobin 12.3 g/dL (12.0-16.0); Lymphocyte % 12.3 %; Mean Corpuscular HGB Conc 34 g/dL (31-36); Mean Corpuscular Hemoglobin 28 pg (27-31); Mean Corpuscular Volume 82 fL (80-97); Mean Platelet Volume 8.7 fL (7.4-10.4); Platelet Count 170 10^3/uL (150-450); Red Blood Count 4.45 10^6 /uL (3.70-4.87); Red Cell Distribution Width 16 % (10-15); White Blood Count 7.2 10^3/uL (3.5-10.8)
--- NOTE | 2019-07-17 12:29 | PN ---
Progress Note - Progress Note Date of Service: 07/17/19 SOAP: Subjective: []Pt seen at bedside. She feels well at rest, any movement of the LLE causes severe hip/ proximal femur pain. She has no other complaints. Denies CP, SOB, dizziness or nausea. Objective: []Gen: NAD, appears well LLE: shortened and rotated. DP2+, sensation intact to light touch distally, able to f/e at ankle and MTPs Calves supple and nontender Assessment: []Left periprosthetic femur fracture in the context of left total hip arthroplasty Plan: []nonweightbearing, on bedrest. OR tomorrow approx 5-6 pm, postponed today as hardware was not available. Plan is for large long plate with screws and cerclage wires. Heparin 5000 u sq q 8 hr until midnight, then hold chem dvt prophy and cont SCDs Normal diet for now, NPO at midnight IS Booties or float with thin pillow to offload pressure on lateral mal as patient reports discomfort, there is no skin breakdown or erythema at this time Discussed with Dr Beal, she is medically optimized Vital Signs Temp 98.9 F 07/17/19 12:08 Pulse 67 07/17/19 12:08 Resp 16 07/17/19 12:08 BP 134/59 07/17/19 12:08 Pulse Ox 99 07/17/19 12:08 Intake & Output 07/16/19 07/17/19 07/17/19 18:59 06:59 18:59 Intake Total 0 Output Total 600 Balance -600 Weight 142 lb 142 lb Intake: Oral 0 Output: Dale 600 Laboratory Last Values WBC 7.2 10^3/uL (3.5-10.8) 07/17/19 12:13 RBC 4.45 10^6 /uL (3.70-4.87) 07/17/19 12:13 Hgb 12.3 g/dL (12.0-16.0) 07/17/19 12:13 Hct 37 % (35-47) 07/17/19 12:13 MCV 82 fL (80-97) 07/17/19 12:13 MCH 28 pg (27-31) 07/17/19 12:13 MCHC 34 g/dL (31-36) 07/17/19 12:13 RDW 16 % (10-15) H 07/17/19 12:13 Plt Count 170 10^3/uL (150-450) 07/17/19 12:13 MPV 8.7 fL (7.4-10.4) 07/17/19 12:13 Neut % (Auto) 76.5 % 07/17/19 12:13 Lymph % (Auto) 12.3 % 07/17/19 12:13 [place] % (Auto) 10.1 % 07/17/19 12:13 Eos % (Auto) 0.6 % 07/17/19 12:13 Baso % (Auto) 0.5 % 07/17/19 12:13 Absolute Neuts (auto) 5.5 10^3/ul (1.5-7.7) 07/17/19 12:13 Absolute Lymphs (auto) 0.9 10^3/ul (1.0-4.8) L 07/17/19 12:13 Absolute Monos (auto) 0.7 10^3/ul (0-0.8) 07/17/19 12:13 Absolute Eos (auto) 0.0 10^3/ul (0-0.6) 07/17/19 12:13 Absolute Basos (auto) 0.0 10^3/ul (0-0.2) 07/17/19 12:13 Absolute Nucleated RBC 0.0 10^3/ul 07/17/19 12:13 Nucleated RBC % 0.0 07/17/19 12:13 INR (Anticoag Therapy) 1.03 (0.82-1.09) 07/16/19 15:37 Sodium 138 mmol/L (135-145) 07/16/19 15:37 Potassium 4.0 mmol/L (3.5-5.0) 07/16/19 15:37 Chloride 104 mmol/L (101-111) 07/16/19 15:37 Carbon Dioxide 29 mmol/L (22-32) 07/16/19 15:37 Anion Gap 5 mmol/L (2-11) 07/16/19 15:37 BUN 16 mg/dL (6-24) 07/16/19 15:37 Creatinine 0.72 mg/dL (0.51-0.95) 07/16/19 15:37 Est GFR ( Amer) 92.3 (>60) 07/16/19 15:37 Est GFR (Non-Af Amer) 76.3 (>60) 07/16/19 15:37 BUN/Creatinine Ratio 22.2 (8-20) H 07/16/19 15:37 Glucose 122 mg/dL (70-100) H 07/16/19 15:37 Calcium 9.2 mg/dL (8.6-10.3) 07/16/19 15:37 Total Bilirubin 0.50 mg/dL (0.2-1.0) 07/16/19 15:37 AST 17 U/L (13-39) 07/16/19 15:37 ALT 11 U/L (7-52) 07/16/19 15:37 Alkaline Phosphatase 83 U/L (34-104) 07/16/19 15:37 Total Protein 6.8 g/dL (6.4-8.9) 07/16/19 15:37 Albumin 3.6 g/dL (3.2-5.2) 07/16/19 15:37 Globulin 3.2 g/dL (2-4) 07/16/19 15:37 Albumin/Globulin Ratio 1.1 (1-3) 07/16/19 15:37 Urine Color Yellow 07/16/19 16:55 Urine Appearance Cloudy 07/16/19 16:55 Urine pH 9.0 (5-9) 07/16/19 16:55 Ur Specific [place] 1.012 (1.010-1.030) 07/16/19 16:55 Urine Protein Negative (Negative) 07/16/19 16:55 Urine Ketones Trace (Negative) A 07/16/19 16:55 Urine Blood Negative (Negative) 07/16/19 16:55 Urine Nitrate Negative (Negative) 07/16/19 16:55 Urine Bilirubin Negative (Negative) 07/16/19 16:55 Urine Urobilinogen Negative (Negative) 07/16/19 16:55 Ur Leukocyte Esterase Negative (Negative) 07/16/19 16:55 Urine Glucose Negative (Negative) 07/16/19 16:55 Urine Ascorbic Acid * (Negative) A 07/16/19 16:55
[2019-07-17 12:38] LABS: Activated Partial Thrombo Time 30.9 seconds (26.0-38.0); INR 1.1 (0.82-1.09)
[2019-07-17 12:47] LABS: EGFR African American 95.3 (>60); EGFR Non-African American 78.8 (>60)
[2019-07-17] MEDS: oxyCODONE TAB* 5 MG TAB PO PRN (14:05)
[2019-07-17] MEDS: Heparin VIAL(*) 5000 UNITS/ML VIAL (FIVE THOUSAND) SUBCUT SCH ×2 (14:06→22:06)
[2019-07-17] MEDS: Docusate CAP* 100 MG PO SCH (22:05)
[2019-07-18] MEDS: Morphine INJ* 2 MG/ML 1 ML SYRINGE (TWO MG - NEW SYRINGE VERSION) IV PRN ×3 (00:42→13:12)
[2019-07-18] MEDS: NS 0.9% 1000 ML** 1,000 ML IV SCH ×2 (03:27→16:43)
[2019-07-18] MEDS: Calcium Polycarbophil TAB* 625 MG PO SCH (08:12)
[2019-07-18] MEDS: Docusate CAP* 100 MG PO SCH ×2 (08:13→21:54)
[2019-07-18 08:38] LABS: ABS Eosinophils 0.2 10^3/ul (0-0.6); ABS Lymphocytes 0.9 10^3/ul (1.0-4.8); ABS Monocytes 0.7 10^3/ul (0-0.8); ABS Neutrophils 4.6 10^3/ul (1.5-7.7); Eosinophil % 2.6 %; Hematocrit 32 % (35-47); Hemoglobin 10.9 g/dL (12.0-16.0); Lymphocyte % 14.3 %; Mean Corpuscular HGB Conc 34 g/dL (31-36); Mean Corpuscular Hemoglobin 28 pg (27-31); Mean Corpuscular Volume 83 fL (80-97); Nucleated Red Blood Cells % 0.1; Platelet Count 152 10^3/uL (150-450); Red Blood Count 3.93 10^6 /uL (3.70-4.87); Red Cell Distribution Width 16 % (10-15); White Blood Count 6.4 10^3/uL (3.5-10.8)
[2019-07-18 08:47] LABS: INR 1.11 (0.82-1.09)
[2019-07-18 08:56] LABS: BUN/Creatinine Ratio 18.8 (8-20); Calcium 8.2 mg/dL (8.6-10.3); EGFR African American 96.9 (>60); EGFR Non-African American 80.1 (>60); Potassium 3.7 mmol/L (3.5-5.0)
[2019-07-18] MEDS ORDERED: Ondansetron INJ* 2 MG/ML VIAL ONE (18:14)
[2019-07-18] MEDS ORDERED: Dexamethasone IV* 4 MG/ML 1 ML (4 MG) ONE (18:14)
[2019-07-18] MEDS ORDERED: fentaNYL* 50 MCG/ML 2 ML VIAL (100 MCG VIAL) ONE ×2 (18:14→19:49)
[2019-07-18] MEDS ORDERED: Lidocaine 2% PF * 5 ML VIAL ONE (18:14)
[2019-07-18] MEDS ORDERED: Phenylephrine 10 MG/ML VIAL* 1 ML VIAL ONE (18:14)
[2019-07-18] MEDS ORDERED: Propofol* 10 MG/ML 20 ML BTL ONE (18:14)
[2019-07-18] MEDS ORDERED: Cisatracurium* 2 MG/ML MDV 5 ML ONE (18:14)
[2019-07-18] MEDS ORDERED: Midazolam* 1 MG/ML 5 ML VIAL (5 MG) ONE (18:15)
[2019-07-18] MEDS ORDERED: KETAMINE HCL* 50 MG/ML 10 ML VIAL ONE (18:16)
[2019-07-18] MEDS ORDERED: Bupivacaine 0.5%* 50 ML MDV VIAL ONE (18:29)
[2019-07-18] MEDS ORDERED: ceFAZolin 2 GM in NS PREMIX(*) 2 GM/100 ML BAG IVPB ONE ×2 (18:47→23:11)
[2019-07-18 23:27] LABS: Hematocrit 29 % (35-47); Hemoglobin 9.5 g/dL (12.0-16.0)
[2019-07-18] MEDS ORDERED: fentaNYL* 50 MCG/ML 2 ML VIAL (100 MCG VIAL) IV PRN (23:35)
[2019-07-18] MEDS ORDERED: Naloxone* 0.4 MG/ML 1 ML VIAL IV PRN (23:35)
[2019-07-18] MEDS ORDERED: Ondansetron INJ* 2 MG/ML VIAL IV PRN (23:35)
[2019-07-19] MEDS: traMADol TAB* 50 MG PO PRN (04:49)
[2019-07-19 06:08] LABS: Hematocrit 27 % (35-47); Hemoglobin 9.1 g/dL (12.0-16.0); Mean Platelet Volume 9.3 fL (7.4-10.4); Platelet Count 150 10^3/uL (150-450)
[2019-07-19 06:27] LABS: BUN/Creatinine Ratio 15.6 (8-20); Calcium 7.8 mg/dL (8.6-10.3); EGFR African American 105.7 (>60); EGFR Non-African American 87.4 (>60); Potassium 4.1 mmol/L (3.5-5.0)
[2019-07-19] MEDS: Morphine INJ* 2 MG/ML 1 ML SYRINGE (TWO MG - NEW SYRINGE VERSION) IV PRN (06:35)
[2019-07-19] MEDS: CEFAZOLIN 1 GM IVPB SCH ×6 (08:31→23:43)
[2019-07-19] MEDS: oxyCODONE TAB* 5 MG TAB PO PRN ×3 (10:04→22:28)
[2019-07-19] MEDS: Docusate CAP* 100 MG PO SCH ×2 (10:05→22:28)
[2019-07-19] MEDS: Calcium Polycarbophil TAB* 625 MG PO SCH (10:05)
[2019-07-19] MEDS: NS 0.9% 1000 ML** 1,000 ML IV SCH (12:58)
--- NOTE | 2019-07-19 15:11 | PN ---
Progress Note - Progress Note Date of Service: 07/19/19 SOAP: Subjective: Pain is decreased, but present in left lower extremity. Dressing has already been changed, this morning. There was concern about the type of dressing tape placed in the OR (foam tape) and perhaps some concern about the bulkiness of the dressing. Patient reached the edge of the bed with PT. Objective: NAD. Alert and oriented. LLE: - Dressing intact without spotting appreciable. 4x4s in place with paper tape over them, although there were some exposed edges of 4x4s. - NVID left foot x-rays: in PACU from last night show anatomic reduction and excellent hardware placement Selected Entries 07/19/19 11:15 Temperature 97.5 F Pulse Rate 76 Respiratory 16 Rate Blood Pressure 116/49 (mmHg) O2 Sat by Pulse 98 Oximetry Laboratory Tests 07/16/19 07/17/19 07/18/19 15:37 12:13 08:25 Hct 38 37 32 L 07/18/19 07/19/19 23:10 05:49 Hct 29 L 27 L Assessment: POD 1 ORIF left femur periprosthetic fracture with locking plate, screws, and cerclage cables along with strut femoral allograft Plan: - Medical management per Hospitalist - Follow H/H daily for next 2-3 days postop given the amount that femoral shaft or hip fractures bleed perioperatively. - Physical therapy, toe-touch weight bearing left lower extremity - Ancef 1gm IV q 8 hours x 72 hours (3 days) postop followed by a 7 day course of Keflex as prophylaxis - Pain control as needed. Minimize narcotics to maintain lucidity. - [place] will remain in place for 3 weeks postop. - Patient will follow up with me in clinic 3 weeks postop. - I applied more tape to the patient's dressing and will return later today to supplement with ABD dressings on top of current dressing. Please no dressing change again until POD 3.
[2019-07-20] MEDS: NS 0.9% 1000 ML** 1,000 ML IV SCH ×2 (02:37→21:50)
[2019-07-20 04:35] LABS: Hematocrit 21 % (35-47); Mean Corpuscular HGB Conc 34 g/dL (31-36); Mean Corpuscular Hemoglobin 28 pg (27-31); Mean Corpuscular Volume 82 fL (80-97); Mean Platelet Volume 9.5 fL (7.4-10.4); Platelet Count 139 10^3/uL (150-450); Red Blood Count 2.53 10^6 /uL (3.70-4.87); Red Cell Distribution Width 16 % (10-15); White Blood Count 7.3 10^3/uL (3.5-10.8)
[2019-07-20 04:47] LABS: BUN/Creatinine Ratio 18.5 (8-20); Calcium 7.4 mg/dL (8.6-10.3); EGFR African American 103.8 (>60); EGFR Non-African American 85.8 (>60)
--- NOTE | 2019-07-20 05:04 | OP ---
OPERATIVE REPORT: DATE OF OPERATION: 07/18/19 DATE OF : 30 SURGEON: Peyman Grant MD MICA LAMINATING MACHINE FEEDER: SAVITA Thomson A physician agency sales management assistant was required for the length of the procedure for assistance with patient positioning, retraction, instrumentation and closure. ANESTHESIOLOGIST: Dr. Keenan Koroma. ANESTHESIA: General anesthesia, local anesthesia using 20 cc proximally, of Marcaine 0.25% with epinephrine. PRE-OP DIAGNOSES: 1. Left periprosthetic femur fracture, about a total hip arthroplasty femoral implant. 2. History of prior left total hip arthroplasty in approximately 2016. POST-OP DIAGNOSES: 1. Left periprosthetic femur fracture, about a total hip arthroplasty femoral implant. 2. History of prior left total hip arthroplasty in approximately 2016. OPERATIVE PROCEDURE: 1. Open reduction internal fixation left femoral shaft fracture with plates and screws and cerclage wires. 2. Inclusion Allograft cortical femoral struts into open reduction internal fixation. 3. Modifier 22 for unusual procedure. I picked this code given the nature of the left femoral shaft fracture, as it was periprosthetic, and extended proximally almost to the lesser trochanter and distal to the midshaft with significant displacement of parts of the fracture line. ANTIBIOTICS: Ancef 2 g IV just prior to the skin incision. IV FLUIDS: See anesthesia note. ESTIMATED BLOOD LOSS: Approximately 300 cc. FNJE-XA-LPEG TIME: 193 minutes. RADIATION EXPOSURE: C-arm utilized. SPECIMENS: None. IMPLANTS: Roxana NCB periprosthetic trochanteric plate, left, narrow. 9 cerclage cables, Roxana 1.8 mm in diameter, 25 inches length to start. Multiple NCB cable buttons for the NCB polyaxial locking plate. Femoral Cortical Strut, Halved, from the musculoskeletal transplant foundation. Multiple nonlocking and locking screws through the plate, all from the Roxana system. COMPLICATIONS: None. INDICATIONS FOR PROCEDURE: The patient is an 89-year-old woman, who lives alone [facility], who ambulates without assist at home but with an assist when she leaves the house, who sustained a mechanical fall at home at 1:45 p.m. on 07/16/19. The patient was unable to get up. She used an emergency pendant. She had pain , swelling, and deformity about the left lower extremity. She was taken to the [facility] Emergency Department and orthopedic surgery consult was called during the night of 07/16/19. X-rays demonstrated a left femoral shaft periprosthetic fracture. The implant appeared stable, the femoral shaft component of the total hip arthroplasty. However, there is significant displacement of a spiral fracture near the distal end of the femoral implant. A CT scan demonstrated a very proximal extension of the fracture line. We requested an especially long proximal femoral locking plate which became available on 07/18/19 and so we proceeded forward with surgery at the earliest convenience on 07/18/19. I spent significant time with the patient discussing potential risks and complications, surgical and medical perioperatively and postoperatively. These included but were not limited to possible bleeding, infection, nerve or blood vessel injury, nonunion, malunion, failure of hardware, need for revision surgery, urinary tract infection, bed sores, deep venous thrombosis, atelectasis. I spoke to the patient preoperatively as well about the long postoperative recovery process and the likely limitation of weightbearing. The patient was quite lucid and appeared to understand all risks and potential complications of surgery and so we moved forward with surgery. I spoke with the patient about the use of allograft, cortical femoral struts as needed. DESCRIPTION OF PROCEDURE: In the preoperative holding, the patient signed a written consent. Operative extremity was marked in preoperative holding. The patient was taken back to the operating room sedated and intubated. The patient was placed on a fracture table. This was chosen to help obtain the reduction. The patient was placed on the fracture table, and all of it was assembled appropriately. Prior to prep and drape we brought in a large C-arm and confirmed that adequate AP and lateral views of the left hip and femoral shaft could be obtained. Mini-time out was performed and traction was applied which improved the reduction. Traction was then removed. Prepped and draped. Formal surgical time-out performed. Traction was applied to the left lower extremity. C-arm images showed excellent improvement of reduction. I made a skin incision, lateral about the proximal thigh. I dissected down through subcutaneous tissue to the hip abductor fascia and the iliotibial band fascia. Incised that longitudinally. Next I incised the vastus lateralis fascia and split that exposing the femoral shaft. Visualized nicely the displaced component of the fracture and the visible distal tip of the femoral implant. Irrigation. Debridement with curette and Davalos and periosteal elevator. When we wiggled the femoral component it appeared to be stable with proximal femoral bone. I first wanted to stabilize and assure that it would not become unstable, the proximal extension, nondisplaced at the fracture line. Therefore, my first move was to place a cerclage cable around the proximal femur proximal to the displaced fracture site. Using a Roxana cable with a crimp, I applied this cable and cut its end. Now with the proximal fragment stabilized, I went about obtaining a reduction at the displaced fracture site. We applied a little bit more traction to the left lower extremity and applied some bone clamps. This obtained what appeared to be an anatomic reduction. C-arm images confirmed excellent reduction of bone. I therefore next placed 2 cerclage cables about the femur spanning the displaced component of the spiral fracture line. I was able to remove the bone clamps and the reduction was maintained using these 2 cerclage cables. I next sized the NCB periprosthetic trochanteric plate, left, narrow. It appeared to fit nicely to bone. It would be long enough distally. I decided to use the greater trochanteric extension to it proximally for some additional fixation. The plate was applied laterally to bone and held in place with some bone clamps. I next fixed it to bone proximal and distal to the fracture site using cerclage cables passed through grommet or cable buttons, placed in the locking plate. I next placed 1 screw proximal, 1 screw distal to the fracture site. At this point, with cables directly across the displaced fracture site as well as the plate with a cable and screw on each side, I felt comfortable taking the patient out of traction. I made sure to take the patient out of traction as soon as possible to minimize any damage to the soft tissues in this elderly patient. I should note that we also spent much time throughout the case irrigating the wound to minimize fluid loss and to minimize the risk of infection especially given the patient's age and infirmity and the long size of the incision. I continued to stabilize plate to bone proximally and distally with cerclage wires and screws. A variety of screw sizes were placed thorough the plate proximally and distally. I placed at least 3 screws proximal and distal to the displaced fracture site and multiple cerclage cables on either side. Plate was well-stabilized to bone. I next for some additional stabilization had thawed a strut femoral allograft. I applied that to the anterior aspect of the femur. I used 2 cables passed around the femoral shaft and the lateral plate to hold that strut allograft to bone. I used an oscillating saw to remove the distal end of the strut graft to minimize its prominence in this thin woman. Irrigation. Closure of the facial layer with multiple running stitches using Ethibond 1 suture. Closure of the subcutaneous layer with buried simple stitches using Vicryl 2.0 suture. A closure of the skin with ruben. Some local anesthetic was injected into the subcutaneous tissue along the incision site. Xeroform, 4x4s, ABDs, foam tape. The patient was awakened and extubated. She was transferred to a stretcher or a patient bed and taken to the PACU. DISPOSITION: The patient was to be readmitted postoperatively to the hospitalist service. She was to be toe-touch weightbearing left lower extremity and to work extensively as soon as possible with Physical Therapy. She will start Lovenox 30 mg subcutaneous daily. Given the late time that we ended this case, we opted to start this anticoagulation in the morning of . With regards to antibiotics, given the age of the patient, the long length of the incision, and the stakes if this were to get infected, I chose a particularly aggressive antibiotic prophylactic regiment. I chose Ancef 1 g IV every 8 hours for 72 hours postoperatively that is 3 days, followed by 7 days of Keflex 3 times a day. The consequences if this wound were to be infected would be catastrophic. The patient will receive pain control as needed with oral and IV narcotics, but we will certainly attempt to minimize narcotics. I asked that CBC be obtained in the PACU given this being a femur fracture and the patient losing some blood intraoperatively and perioperatively. We will transfuse as needed as I discussed with the patient preoperatively. Orthopedic service will continue to follow. My plan for this patient would be to leave the ruben in place for 3 weeks postoperatively and then I will see her in clinic 3 weeks postoperatively to remove these ruben. [id number]/[facility] #: [id number] TOM
[2019-07-20 05:21] LABS: ABS Lymphocytes 0.6 10^3/ul (1.0-4.8); ABS Monocytes 1.3 10^3/ul (0-0.8); ABS Neutrophils 5.5 10^3/ul (1.5-7.7); Eosinophil % 0.3 %; Lymphocyte % 7.7 %; Nucleated Red Blood Cells % 0.6
[2019-07-20] MEDS: traMADol TAB* 50 MG PO PRN (06:33)
[2019-07-20] MEDS: CEFAZOLIN 1 GM IVPB SCH ×6 (08:32→23:52)
[2019-07-20] MEDS: Docusate CAP* 100 MG PO SCH ×2 (08:38→22:26)
[2019-07-20] MEDS: Calcium Polycarbophil TAB* 625 MG PO SCH (08:38)
[2019-07-20] MEDS: Enoxaparin(*) 30 MG/0.3 ML SYR SUBCUT SCH (09:02)
--- NOTE | 2019-07-20 10:31 | PN ---
Progress Note - Progress Note Date of Service: 07/20/19 SOAP: Subjective: Vomited recently. Patient believes this is secondary to narcotics. Also has some mild abdominal pain. She describes 1 BM postop. Patient is of Dr. Teresa Beal's, who is following. Objective: NAD. Alert and oriented. Abdomen soft, non-tender. Appears slightly distended although the patient could not say if that is different from baseline. LLE: - Dressing clean, dry intact - Pulses 2+ DP and PT, CR less than 2 seconds - No sign of skin breakdown foot or heel - Can actively flex/extend toes and ankle, but pain limited ability to flex/ extend knee Selected Entries 07/19/19 07/19/19 07/19/19 07:20 11:15 16:35 Temperature 98.4 F 97.5 F 99.1 F Pulse Rate Respiratory Rate Blood Pressure (mmHg) O2 Sat by Pulse Oximetry 07/19/19 07/19/19 07/20/19 19:45 23:33 03:06 Temperature 98.8 F 97.7 F 99.1 F Pulse Rate Respiratory Rate Blood Pressure (mmHg) O2 Sat by Pulse Oximetry 07/20/19 07:23 Temperature 99 F Pulse Rate 92 Respiratory 16 Rate Blood Pressure 124/45 (mmHg) O2 Sat by Pulse 93 Oximetry Laboratory Tests 07/16/19 07/17/19 07/18/19 15:37 12:13 08:25 WBC Hct 38 37 32 L Neut % (Auto) 07/18/19 07/19/19 07/20/19 23:10 05:49 04:23 WBC 7.3 Hct 29 L 27 L 21 L Neut % (Auto) 74.7 Assessment: POD 2 ORIF left femur periprosthetic fracture with cables, plate, screws, femoral strut allograft Plan: - Physical therapy, toe touch weight bearing left lower extremity - Ancef x 3 days postop then Keflex x 7 days - Pain control. Minimize narcotics for mental status and to minimize nausea, vomiting. - First real dressing change to be by orthopaedic surgery service on Monday, . - If dressing is contaminated by urine or feces, please alert orthopaedic surgery immediately given that dressing placed on POD 1 includes paper tape. - Hct has dropped from 38 to 21. This is expected given this injury. Not symptomatic currently. I will order another Hct for noon today. If Hct is 21 or lower, I would recommend 1 u PRBC, but Dr. Beal is also seeing the patient and can weigh in. - Encouraged incentive spirometry, movement, out of bed with physical therapy or nursing. - Bowel meds as needed for nausea, vomiting and minimize narcotics.
[2019-07-20 12:11] LABS: ABS Basophils 0.1 10^3/ul (0-0.2); ABS Lymphocytes 0.6 10^3/ul (1.0-4.8); ABS Neutrophils 6.6 10^3/ul (1.5-7.7); Hematocrit 20 % (35-47); Hemoglobin 6.9 g/dL (12.0-16.0); Lymphocyte % 6.7 %; Mean Corpuscular HGB Conc 34 g/dL (31-36); Mean Corpuscular Hemoglobin 28 pg (27-31); Mean Corpuscular Volume 83 fL (80-97); Mean Platelet Volume 10.3 fL (7.4-10.4); Platelet Count 151 10^3/uL (150-450); Red Blood Count 2.47 10^6 /uL (3.70-4.87); Red Cell Distribution Width 16 % (10-15); White Blood Count 8.2 10^3/uL (3.5-10.8)
[2019-07-20] MEDS ORDERED: diPHENhydraMINE PO* 25 MG PO PRN (13:33)
--- NOTE | 2019-07-20 13:41 | PN ---
Subjective - Subjective Reason for Note: Progress Note History: She had a bad reaction to oxycodone - she has previously tolerated this. She has nausea and abdominal discomfort. Otherwise, her pain control is reasonable. She feels weak. Active Problems: Active Problems Anemia following surgery (Acute) D64.9 Periprosthetic fracture around internal prosthetic left hip joint, initial encounter (Acute) M97.02XA Diverticulosis (Chronic) K57.90 Hyperlipidemia (Chronic) E78.5 Spinal stenosis (Chronic) M48.00 Current Medications: Current Medications Acetaminophen (Tylenol Tab*) 650 mg PO Q4H PRN PRN Reason: FEVER/HEADACHE Last Admin: 07/17/19 11:42 Dose: 650 mg Calcium Polycarbophil (Fibercon Tab*) 625 mg PO DAILY [facility] Last Admin: 07/20/19 08:38 Dose: Not Given Cephalexin HCl (Keflex Cap*) 500 mg PO TID [facility] Stop: 07/29/19 08:59 Diphenhydramine HCl (Benadryl Po*) 25 mg PO Q6H PRN PRN Reason: Allergy Symptoms Docusate Sodium (Colace Cap*) 100 mg PO BID [facility] Last Admin: 07/20/19 08:38 Dose: Not Given Enoxaparin Sodium (Lovenox(*)) 30 mg SUBCUT Q24H [facility] Last Admin: 07/20/19 09:02 Dose: 30 mg Sodium Chloride (Ns 0.9% 1000 Ml) 1,000 mls @ 75 mls/hr IV PER RATE [facility] Last Admin: 07/20/19 02:37 Dose: 75 mls/hr Cefazolin Sodium 1 gm/ Sodium (Chloride) 50 mls @ 200 mls/hr IVPB Q8H [facility] Stop: 07/21/19 23:00 Last Admin: 07/20/19 08:32 Dose: 200 mls/hr Magnesium Hydroxide (Milk Of Magnesia Liq*) 30 ml PO BID PRN PRN Reason: CONSTIPATION Morphine Sulfate (Morphine Inj (Syringe))*) 2 mg IV Q3H PRN PRN Reason: PAIN - MODERATE Last Admin: 07/19/19 06:35 Dose: 2 mg Ondansetron HCl (Zofran Inj*) 4 mg IV Q6H PRN PRN Reason: NAUSEA Last Admin: 07/20/19 08:32 Dose: 4 mg Polyethylene Glycol/Electrolytes (Miralax*) 17 gm PO DAILY PRN PRN Reason: CONSTIPATION Senna (Senokot 8.6 Mg Tab*) 1 tab PO BEDTIME PRN PRN Reason: CONSTIPATION Tramadol HCl (Ultram*) 50 mg PO Q6H PRN PRN Reason: PAIN - MODERATE Last Admin: 07/20/19 06:33 Dose: 50 mg - Review of Systems Constitutional Symptoms: No: Fever Pulmonary: Negative: Cough, Sputum Genital - Urinary: Positive: Dysuria Home Medications: Home Medications Medication Instructions Recorded Confirmed Type Calcium Carb/Vit D3/Minerals 1 tab PO DAILY 11/02/17 07/16/19 History [Calcium 600+D Plus Minera] Calcium Polycarbophil TAB* 625 mg PO DAILY 11/02/17 07/16/19 History [Fibercon TAB*] Allergies: Allergies Allergy/AdvReac Type Severity Reaction Status Date / Time metronidazole [From Flagyl] Allergy Unknown Verified 07/16/19 15:23 Reaction Details mold Allergy Unknown Verified 07/16/19 15:23 Reaction Details Sulfa (Sulfonamide Allergy Rash Verified 07/16/19 15:22 Antibiotics) Objective - Vital Signs Vital Signs: Vital Signs 07/19/19 07/19/19 07/19/19 16:35 17:29 19:45 Temperature 99.1 F 98.8 F Pulse Rate 89 92 Respiratory 18 18 16 Rate Blood Pressure 133/45 123/60 (mmHg) O2 Sat by Pulse 97 100 Oximetry 07/19/19 07/19/19 07/19/19 19:50 19:52 19:56 Temperature Pulse Rate Respiratory 19 19 19 Rate Blood Pressure (mmHg) O2 Sat by Pulse Oximetry 07/19/19 07/19/19 07/20/19 22:28 23:33 03:06 Temperature 97.7 F 99.1 F Pulse Rate 97 98 Respiratory 19 18 18 Rate Blood Pressure 113/40 108/47 (mmHg) O2 Sat by Pulse 99 94 Oximetry 07/20/19 07/20/19 07/20/19 06:33 07:23 08:26 Temperature 99 F Pulse Rate 92 Respiratory 18 16 16 Rate Blood Pressure 124/45 (mmHg) O2 Sat by Pulse 93 Oximetry 07/20/19 08:30 Temperature Pulse Rate Respiratory 16 Rate Blood Pressure (mmHg) O2 Sat by Pulse Oximetry - Intake and Output Intake and Output: Intake & Output 07/18/19 07/19/19 07/20/19 07/21/19 11:59 11:59 11:59 11:59 Intake Total 2890 4140 2501 Output Total 925 1900 1000 Balance 1965 2240 1501 Weight 142 lb Intake: IV Fluids 1969 3780 986 LR 2800 NS 1969 980 986 IVPB 50 ABX - CEFAZOLIN 50 Oral 110 855 2133 Output: Urine 0 1000 Dale 925 1400 Estimated Blood Loss 500 Other: Estimated Void Small Estimated Stool Amount Small # Voids 1 ADLs: Meal Record Start: 07/16/19 23: 16 Freq: Status: Active Protocol: Created 07/16/19 23:16 System (Rec: 07/16/19 23:16 System [id number]) Document 07/18/19 09:46 [id number] (Rec: 07/18/19 09:46 [id number] SSU-M17) Document 07/19/19 19:45 [id number] (Rec: 07/19/19 19:46 [id number] SSU-M18) Intake and Output Start: 07/16/19 15: 14 Freq: Status: Active Protocol: Created 07/16/19 15:14 System (Rec: 07/16/19 15:14 System [id number]) Intake and Output Start: 07/16/19 23: 16 Freq: DAILY@0600,1400,2200 Status: Active Protocol: Created 07/16/19 23:16 System (Rec: 07/16/19 23:16 System [id number]) Document 07/17/19 05:17 [id number] (Rec: 07/17/19 05:23 [id number] SSU-M22) Document 07/17/19 14:00 [id number] (Rec: 07/17/19 14:07 [id number] SSU-M16) Document 07/17/19 14:16 [id number] (Rec: 07/17/19 14:16 [id number] SSU-M17) Document 07/17/19 19:33 [id number] (Rec: 07/17/19 19:33 [id number] SSU-M22) Document 07/17/19 22:10 [id number] (Rec: 07/17/19 22:11 [id number] SSU-M17) Document 07/18/19 05:01 [id number] (Rec: 07/18/19 05:01 [id number] SSU-M22) Document 07/18/19 05:41 [id number] (Rec: 07/18/19 05:41 [id number] SSU-M13) Document 07/18/19 13:27 [id number] (Rec: 07/18/19 13:27 [id number] SSU-M17) Document 07/19/19 05:43 [id number] (Rec: 07/19/19 05:46 [id number] TELE-M14) Document 07/19/19 10:39 [id number] (Rec: 07/19/19 10:39 [id number] SSU-C11) Document 07/19/19 13:00 [id number] (Rec: 07/19/19 15:30 [id number] SSU-C11) Document 07/19/19 14:46 [id number] (Rec: 07/19/19 14:48 [id number] SSU-C09) Document 07/19/19 17:27 [id number] (Rec: 07/19/19 17:27 [id number] SSU-M07) Document 07/19/19 20:54 [id number] (Rec: 07/19/19 20:54 [id number] SSU-M18) Document 07/19/19 22:21 [id number] (Rec: 07/19/19 22:21 [id number] SSU-M18) Document 07/20/19 05:47 [id number] (Rec: 07/20/19 05:49 [id number] TELE-M14) Document 07/20/19 06:37 [id number] (Rec: 07/20/19 06:37 [id number] SSU-C08) Document 07/20/19 10:51 [id number] (Rec: 07/20/19 10:51 [id number] SSU-C09) - Physical Exam General Physical Exam Comment: Sitting in a chair with her lunch in front of her , looking uncomfortable. Conversational. Warm and well perfused, hydrated. General: No Cyanosis, Yes Anemia, No Jaundice, No Clubbing Lungs and Chest: Yes: Chest Expansion Full, Chest Expansion Symetrica, Vessicular Breath Sounds. No: Crackles, Wheezes, Respiratory Distress, Use of Accessory Muscles Heart Rate and Rhythm: Regular Additional Cardiovascular: Yes: Normal Heart Sounds, Heart Murmur - 2/6 PSM apex to axilla - mitral regurgitation. No: Pedal Edema Abdominal Exam: Yes: Soft, Bowel Sounds Present. No: Distention, Abdominal Tenderness Results - Results Lab Results: Laboratory Results - last 24 hr 07/18/19 07/20/19 07/20/19 08:25 04:23 04:23 WBC 7.3 RBC 2.53 L Hgb 7.0 L Hct 21 L MCV 82 MCH 28 MCHC 34 RDW 16 H Plt Count 139 L MPV 9.5 Neut % (Auto) 74.7 Lymph % (Auto) 7.7 Morton % (Auto) 17.2 Eos % (Auto) 0.3 Baso % (Auto) 0.1 Absolute Neuts (auto) 5.5 Absolute Lymphs (auto) 0.6 L Absolute Monos (auto) 1.3 H Absolute Eos (auto) 0.0 Absolute Basos (auto) 0.0 Absolute Nucleated RBC 0.0 Nucleated RBC % 0.6 Sodium 133 L Potassium 4.0 Chloride 104 Carbon Dioxide 28 Anion Gap 1 L BUN 12 Creatinine 0.65 Est GFR ( Amer) 103.8 Est GFR (Non-Af Amer) 85.8 BUN/Creatinine Ratio 18.5 Glucose 145 H Calcium 7.4 L Crossmatch See Detail 07/20/19 10:56 WBC 8.2 RBC 2.47 L Hgb 6.9 L Hct 20 L MCV 83 MCH 28 MCHC 34 RDW 16 H Plt Count 151 MPV 10.3 Neut % (Auto) 80.1 Lymph % (Auto) 6.7 Morton % (Auto) 12.5 Eos % (Auto) 0.0 Baso % (Auto) 0.7 Absolute Neuts (auto) 6.6 Absolute Lymphs (auto) 0.6 L Absolute Monos (auto) 1.0 H Absolute Eos (auto) 0.0 Absolute Basos (auto) 0.1 Absolute Nucleated RBC 0.0 Nucleated RBC % 0.0 Sodium Potassium Chloride Carbon Dioxide Anion Gap BUN Creatinine Est GFR ( Amer) Est GFR (Non-Af Amer) BUN/Creatinine Ratio Glucose Calcium Crossmatch Assessment - Problem List Assessment: Patient Problems Anemia following surgery (Acute) Periprosthetic fracture around internal prosthetic left hip joint, initial encounter (Acute) Diverticulosis (Chronic) Hyperlipidemia (Chronic) Spinal stenosis (Chronic) Plan: Periprosthetic fracture around internal prosthetic left hip joint, initial encounter (Acute) 2 days post operative. I reviewed Dr. Leighton Grant's note. She has nausea following opioid. I will stop the oxycodone. Anemia following surgery (Acute) She agrees to a blood transfusion x 2 units of pRBCs. I will pretreat with benadryl. I explained possible problems including transfusion reaction, rash, fever. secondary diagnoses Diverticulosis (Chronic) Hyperlipidemia (Chronic) Spinal stenosis (Chronic) I discussed the above with the Javier Otero, who agrees with the plan
[2019-07-20] MEDS ORDERED: Ondansetron INJ* 2 MG/ML VIAL IV PRN (13:43)
[2019-07-20] MEDS: Acetaminophen TAB* 325 MG PO PRN (22:26)
[2019-07-21 05:29] LABS: ABS Lymphocytes 0.7 10^3/ul (1.0-4.8); ABS Monocytes 1.3 10^3/ul (0-0.8); ABS Neutrophils 6.5 10^3/ul (1.5-7.7); Eosinophil % 0.6 %; Hematocrit 26 % (35-47); Lymphocyte % 8.2 %; Mean Corpuscular HGB Conc 35 g/dL (31-36); Mean Corpuscular Hemoglobin 28 pg (27-31); Mean Corpuscular Volume 81 fL (80-97); Mean Platelet Volume 9.5 fL (7.4-10.4); Platelet Count 142 10^3/uL (150-450); Red Blood Count 3.18 10^6 /uL (3.70-4.87); Red Cell Distribution Width 17 % (10-15); White Blood Count 8.5 10^3/uL (3.5-10.8)
[2019-07-21 05:51] LABS: Calcium 7.7 mg/dL (8.6-10.3); EGFR African American 140.6 (>60); EGFR Non-African American 116.2 (>60); Potassium 3.7 mmol/L (3.5-5.0)
[2019-07-21] MEDS: CEFAZOLIN 1 GM IVPB SCH ×4 (07:52→15:36)
[2019-07-21] MEDS: Acetaminophen TAB* 325 MG PO PRN ×2 (07:52→15:36)
--- NOTE | 2019-07-21 10:02 | PN ---
Subjective - Subjective Reason for Note: Progress Note History: She is feeling improved today after the transfusion. The adverse effects of oxycodone on her digestive system have disappeared. Her mobility is compromised by weakness and pain. She is anxious about returning too quickly to [facility]. Active Problems: Active Problems Anemia following surgery (Acute) D64.9 Periprosthetic fracture around internal prosthetic left hip joint, initial encounter (Acute) M97.02XA Diverticulosis (Chronic) K57.90 Hyperlipidemia (Chronic) E78.5 Spinal stenosis (Chronic) M48.00 Current Medications: Current Medications Acetaminophen (Tylenol Tab*) 650 mg PO Q4H PRN PRN Reason: FEVER/HEADACHE Last Admin: 07/21/19 07:52 Dose: 650 mg Calcium Polycarbophil (Fibercon Tab*) 625 mg PO DAILY [facility] Last Admin: 07/20/19 08:38 Dose: Not Given Cephalexin HCl (Keflex Cap*) 500 mg PO TID [facility] Stop: 07/29/19 08:59 Diphenhydramine HCl (Benadryl Po*) 25 mg PO Q6H PRN PRN Reason: Allergy Symptoms-See Comment Docusate Sodium (Colace Cap*) 100 mg PO BID [facility] Last Admin: 07/20/19 22:26 Dose: 100 mg Enoxaparin Sodium (Lovenox(*)) 30 mg SUBCUT Q24H [facility] Last Admin: 07/20/19 09:02 Dose: 30 mg Sodium Chloride (Ns 0.9% 1000 Ml) 1,000 mls @ 75 mls/hr IV PER RATE [facility] Last Admin: 07/20/19 21:50 Dose: 75 mls/hr Cefazolin Sodium 1 gm/ Sodium (Chloride) 50 mls @ 200 mls/hr IVPB Q8H [facility] Stop: 07/21/19 23:00 Last Admin: 07/21/19 07:52 Dose: 200 mls/hr Magnesium Hydroxide (Milk Of Magnesia Liq*) 30 ml PO BID PRN PRN Reason: CONSTIPATION Morphine Sulfate (Morphine Inj (Syringe))*) 2 mg IV Q3H PRN PRN Reason: PAIN - MODERATE Last Admin: 07/19/19 06:35 Dose: 2 mg Ondansetron HCl (Zofran Inj*) 4 mg IV Q6H PRN PRN Reason: NAUSEA Last Admin: 07/20/19 08:32 Dose: 4 mg Polyethylene Glycol/Electrolytes (Miralax*) 17 gm PO DAILY PRN PRN Reason: CONSTIPATION Senna (Senokot 8.6 Mg Tab*) 1 tab PO BEDTIME PRN PRN Reason: CONSTIPATION Tramadol HCl (Ultram*) 50 mg PO Q6H PRN PRN Reason: PAIN - MODERATE Last Admin: 07/20/19 06:33 Dose: 50 mg Home Medications: Home Medications Medication Instructions Recorded Confirmed Type Calcium Carb/Vit D3/Minerals 1 tab PO DAILY 11/02/17 07/16/19 History [Calcium 600+D Plus [place]] Calcium Polycarbophil TAB* 625 mg PO DAILY 11/02/17 07/16/19 History [Fibercon TAB*] Allergies: Allergies Allergy/AdvReac Type Severity Reaction Status Date / Time metronidazole [From Flagyl] Allergy Unknown Verified 07/16/19 15:23 Reaction Details mold Allergy Unknown Verified 07/16/19 15:23 Reaction Details Sulfa (Sulfonamide Allergy Rash Verified 07/16/19 15:22 Antibiotics) Objective - Vital Signs Vital Signs: Vital Signs 07/20/19 07/20/19 07/20/19 11:20 14:58 15:35 Temperature 98.3 F 98.5 F 97.3 F Pulse Rate 85 94 83 Respiratory 18 18 16 Rate Blood Pressure 117/73 104/47 112/40 (mmHg) O2 Sat by Pulse 98 96 97 Oximetry 07/20/19 07/20/19 07/20/19 17:37 18:25 19:43 Temperature 98 F 100.0 F 98.5 F Pulse Rate 83 82 82 Respiratory 16 16 16 Rate Blood Pressure 132/62 121/45 119/45 (mmHg) O2 Sat by Pulse 97 98 98 Oximetry 07/20/19 07/20/19 07/20/19 20:35 20:49 23:15 Temperature 99.8 F 99.1 F Pulse Rate 78 77 Respiratory 16 16 16 Rate Blood Pressure 118/56 101/41 (mmHg) O2 Sat by Pulse 99 92 Oximetry 07/21/19 07/21/19 07/21/19 03:22 07:25 07:44 Temperature 97.3 F 97.5 F Pulse Rate 76 77 Respiratory 16 16 16 Rate Blood Pressure 95/51 114/59 (mmHg) O2 Sat by Pulse 96 97 Oximetry - Intake and Output Intake and Output: Intake & Output 07/18/19 07/19/19 07/20/19 07/21/19 11:59 11:59 11:59 11:59 Intake Total 2890 4140 2501 1566 Output Total 925 1900 1000 1150 Balance 1965 2240 1501 416 Weight 142 lb Intake: IV Fluids 1970 3780 986 981 ABX - CEFAZOLIN 110 LR 2800 NS 1970 980 986 871 IVPB 50 55 ABX - CEFAZOLIN 50 55 Oral 125 830 6430 200 Packed Cells 330 Output: Urine 0 1000 1150 [place] 925 1400 Estimated Blood Loss 500 Other: Estimated Void Small Medium Date of Last Bowel 07/21/2019 Movement # Bowel Movements 1 Estimated Stool Amount Small Small # Voids 1 ADLs: Meal Record Start: 07/16/19 23: 16 Freq: Status: Active Protocol: Created 07/16/19 23:16 System (Rec: 07/16/19 23:16 System [id number]) Document 07/18/19 09:46 [id number] (Rec: 07/18/19 09:46 [id number] SSU-M17) Document 07/19/19 19:45 [id number] (Rec: 07/19/19 19:46 [id number] SSU-M18) Intake and Output Start: 07/16/19 15: 14 Freq: Status: Active Protocol: Created 07/16/19 15:14 System (Rec: 07/16/19 15:14 System [id number]) Intake and Output Start: 07/16/19 23: 16 Freq: DAILY@0600,1400,2200 Status: Active Protocol: Created 07/16/19 23:16 System (Rec: 07/16/19 23:16 System SSU-M22) Document 07/17/19 05:17 [id number] (Rec: 07/17/19 05:23 [id number] SSU-M22) Document 07/17/19 14:00 [id number] (Rec: 07/17/19 14:07 [id number] SSU-M16) Document 07/17/19 14:16 [id number] (Rec: 07/17/19 14:16 [id number] SSU-M17) Document 07/17/19 19:33 [id number] (Rec: 07/17/19 19:33 [id number] SSU-M22) Document 07/17/19 22:10 [id number] (Rec: 07/17/19 22:11 [id number] SSU-M17) Document 07/18/19 05:01 OPU1509 (Rec: 07/18/19 05:01 XFQ7514 SSU-M22) Document 07/18/19 05:41 [id number] (Rec: 07/18/19 05:41 NWI3520 SSU-M13) Document 07/18/19 13:27 [id number] (Rec: 07/18/19 13:27 [id number] SSU-M17) Document 07/19/19 05:43 [id number] (Rec: 07/19/19 05:46 [id number] TELE-M14) Document 07/19/19 10:39 [id number] (Rec: 07/19/19 10:39 [id number] SSU-C11) Document 07/19/19 13:00 JAZ1485 (Rec: 07/19/19 15:30 LCT5556 SSU-C11) Document 07/19/19 14:46 EPC2915 (Rec: 07/19/19 14:48 FZN6021 SSU-C09) Document 07/19/19 17:27 MLY1008 (Rec: 07/19/19 17:27 IUN5695 SSU-M07) Document 07/19/19 20:54 CPM1300 (Rec: 07/19/19 20:54 [id number] SSU-M18) Document 07/19/19 22:21 [id number] (Rec: 07/19/19 22:21 [id number] SSU-M18) Document 07/20/19 05:47 SZN6823 (Rec: 07/20/19 05:49 FJS6096 TELE-M14) Document 07/20/19 06:37 [id number] (Rec: 07/20/19 06:37 [id number] SSU-C08) Document 07/20/19 10:51 BBQ1612 (Rec: 07/20/19 10:51 NRQ2269 SSU-C09) Document 07/20/19 14:16 [id number] (Rec: 07/20/19 14:16 FQI2838 SSU-M07) Document 07/20/19 18:19 [id number] (Rec: 07/20/19 18:19 [id number] SSU-M07) Document 07/20/19 21:46 [id number] (Rec: 07/20/19 21:47 [id number] SSU-M17) Document 07/20/19 22:13 MGG0459 (Rec: 07/20/19 22:13 [id number] SSU-M17) Document 07/21/19 02:13 [id number] (Rec: 07/21/19 02:13 MHM1282 SSU-C09) Document 07/21/19 05:15 [id number] (Rec: 07/21/19 05:15 [id number] SSU-C19) Document 07/21/19 07:36 [id number] (Rec: 07/21/19 07:38 [id number] U-M18) - Physical Exam General Physical Exam Comment: Warm, well perfused and hydrated. She is conversational and fully aware of her circumstances. General: No Cyanosis, Yes Anemia, No Jaundice, No Clubbing Lungs and Chest: Yes: Chest Expansion Full, Chest Expansion Symetrica, Vessicular Breath Sounds. No: Crackles, Wheezes Heart Rate and Rhythm: Regular JVP: Not Elevated Additional Cardiovascular: Yes: Normal Heart Sounds, Heart Murmur. No: Pedal Edema Abdominal Exam: Yes: Soft, Bowel Sounds Present. No: Distention, Abdominal Tenderness Results - Results Lab Results: Laboratory Results - last 24 hr 07/18/19 07/20/19 07/21/19 08:25 10:56 04:51 WBC 8.2 8.5 RBC 2.47 L 3.18 L Hgb 6.9 L 9.0 L Hct 20 L 26 L MCV 83 81 MCH 28 28 MCHC 34 35 RDW 16 H 17 H Plt Count 151 142 L MPV 10.3 9.5 Neut % (Auto) 80.1 76.2 Lymph % (Auto) 6.7 8.2 [place] % (Auto) 12.5 14.8 Eos % (Auto) 0.0 0.6 Baso % (Auto) 0.7 0.2 Absolute Neuts (auto) 6.6 6.5 Absolute Lymphs (auto) 0.6 L 0.7 L Absolute Monos (auto) 1.0 H 1.3 H Absolute Eos (auto) 0.0 0.0 Absolute Basos (auto) 0.1 0.0 Absolute Nucleated RBC 0.0 0.0 Nucleated RBC % 0.0 0.0 Sodium Potassium Chloride Carbon Dioxide Anion Gap BUN Creatinine Est GFR ( Amer) Est GFR (Non-Af Amer) BUN/Creatinine Ratio Glucose Calcium Blood Type AB Positive Antibody Screen Negative Crossmatch See Detail 07/21/19 04:51 WBC RBC Hgb Hct MCV MCH MCHC RDW Plt Count MPV Neut % (Auto) Lymph % (Auto) [place] % (Auto) Eos % (Auto) Baso % (Auto) Absolute Neuts (auto) Absolute Lymphs (auto) Absolute Monos (auto) Absolute Eos (auto) Absolute Basos (auto) Absolute Nucleated RBC Nucleated RBC % Sodium 136 Potassium 3.7 Chloride 105 Carbon Dioxide 27 Anion Gap 4 BUN 12 Creatinine 0.50 L Est GFR ( Amer) 140.6 Est GFR (Non-Af Amer) 116.2 BUN/Creatinine Ratio 24.0 H Glucose 113 H Calcium 7.7 L Blood Type Antibody Screen Crossmatch Assessment - Problem List Assessment: Patient Problems Anemia following surgery (Acute) Periprosthetic fracture around internal prosthetic left hip joint, initial encounter (Acute) Diverticulosis (Chronic) Hyperlipidemia (Chronic) Spinal stenosis (Chronic) Plan: Anemia following surgery (Acute) Her hemoglobin went from 6.9 to 9.0. She is feeling improved. She has had no transfusion reaction and has no signs of volume overload Periprosthetic fracture around internal prosthetic left hip joint, initial encounter (Acute) She has no pain lying flat, but is worried about the pain on moving. Secondary diagnoses Diverticulosis (Chronic) Hyperlipidemia (Chronic) Spinal stenosis (Chronic) I discussed the above with the patient. She is wary of returning too soon to [facility] - even if it is to their long term facility. I reassured her she requires a safe discharge.
--- NOTE | 2019-07-21 10:12 | PN ---
Progress Note - Progress Note Date of Service: 07/21/19 SOAP: Subjective: Objective: NAD. Alert and oriented. Abdomen soft, non-tender. Appears slightly distended although the patient could not say if that is different from baseline. LLE: - Dressing clean, dry intact - Pulses 2+ DP and PT, CR less than 2 seconds - No sign of skin breakdown foot or heel - Can actively flex/extend toes and ankle, but pain limited ability to flex/ extend knee Assessment: POD 3 ORIF left femur periprosthetic fracture with cables, plate, screws, femoral strut allograft Plan: Physical therapy toe touch weight bearing left lower extremity Ancef x 3 days postop then Keflex x 7 days Pain control. Dressing change on 07/22/19. Bowel meds as needed for nausea, vomiting and minimize narcotics.
[2019-07-21] MEDS: Enoxaparin(*) 30 MG/0.3 ML SYR SUBCUT SCH (10:13)
[2019-07-21] MEDS: Docusate CAP* 100 MG PO SCH ×2 (10:13→21:07)
[2019-07-21] MEDS: NS 0.9% 1000 ML** 1,000 ML IV SCH ×2 (10:13→23:52)
[2019-07-21] MEDS: Calcium Polycarbophil TAB* 625 MG PO SCH (10:13)
[2019-07-21] MEDS: traMADol TAB* 50 MG PO PRN (18:35)
[2019-07-22 04:55] LABS: Hematocrit 24 % (35-47); Hemoglobin 8.1 g/dL (12.0-16.0); Mean Platelet Volume 8.9 fL (7.4-10.4); Platelet Count 175 10^3/uL (150-450)
[2019-07-22 05:10] LABS: Calcium 7.5 mg/dL (8.6-10.3); EGFR African American 140.6 (>60); EGFR Non-African American 116.2 (>60); Potassium 3.5 mmol/L (3.5-5.0)
[2019-07-22] MEDS: Cephalexin CAP* 500 MG PO SCH ×2 (09:01→13:54)
[2019-07-22] MEDS: Docusate CAP* 100 MG PO SCH (09:01)
[2019-07-22] MEDS: Calcium Polycarbophil TAB* 625 MG PO SCH (09:01)
[2019-07-22] MEDS: traMADol TAB* 50 MG PO PRN ×2 (09:01→14:58)
[2019-07-22] MEDS: Enoxaparin(*) 30 MG/0.3 ML SYR SUBCUT SCH (09:02)
--- NOTE | 2019-07-22 11:48 | TRS ---
CC: Dr. Grant; [facility] TRANSFER SUMMARY: DATE OF ADMISSION: 07/16/19 DATE OF TRANSFER: 07/22/19 DISCHARGE DIAGNOSES: 1. Left femoral fracture, periprosthetic. 2. Postoperative anemia. 3. History of breast cancer. 4. Status post lumbar laminectomy. 5. Pelvic sling operation. HISTORY: The patient is an 89-year-old woman admitted with a periprosthetic left femur fracture afte r falling at home. Please see the dictated admission note for details of the present illness, past m edical history, family history, social and personal history, review of systems, and physical examinat ion. DIAGNOSTIC STUDIES/LAB DATA: CBC on admission: WBCs 8.3, H and H 12.9/38, MCV 82, PLT 181,000. H a nd H went down to 6.9/20 on 07/20/19, was up to 9/26 on 07/21/19, was 8.1/24 on 07/22/19 (probably do wn partly due to delusional factors). INR 1.03. PTT 30.9. Chemistries on admission, sodium 138, pot assium 4.0, chloride 104, CO2 29, BUN and creatinine 16/0.72, glucose 122. Rest of her comprehensive metabolic panel was essentially within normal limits. BMP remained essentially normal throughout he r hospitalization. Blood sugars were slightly elevated at times. Urinalysis: Yellow, clear, specifi c gravity 1.012, pH 9, dipstick negative except for positive for ascorbic acid. Blood type was AB po sitive. Imaging of the hip, pelvis x-ray, femur x-ray, lower extremity CT, pelvis CT showed a periprosthetic femur fracture. Chest x-ray showed no acute disease. Femur x-ray status post surgery on 07/18/19 sh owed operative reduction and internal fixation of left periprosthetic femur fracture. EKG on 9 showed sinus bradycardia, otherwise normal. HOSPITAL COURSE: The patient was admitted. She was placed on bedrest. She was seen in orthopedic c onsultation. Orthopedist Dr. Grant recommended surgical repair of her periprosthetic femur fractur e. She was felt to have relative cardiac risk index class I for low risk for surgery. She was DNR b ut she suspended the DNR for her hospitalization. She had surgery on 07/19/19. She dropped her H an d H. She had blood transfusion. At the time of discharge, her vital signs were stable. Blood pressur e 151/90, pulse 84, respirations 16, temperature 100.1 (temporal). This will be repeated with an oral thermometer. O2 sat 94%. She is being discharged to [facility]. DISCHARGE MEDICATIONS: 1. Cephalexin 500 mg 3 times a day for a week. 2. Diphenhydramine 25 mg q.6h. p.r.n. 3. Docusate 100 mg twice a day. 4. Enoxaparin 30 mg every 24 hours x1 month. 5. Calcium polycarbophil (Fibercon) 625 mg daily. 6. Calcium 600 mg plus D 1 daily. 7. Tylenol 650 q.4h. p.r.n. pain. 8. Milk of magnesia 30 cc p.o. b.i.d. p.r.n. constipation. 9. MiraLAX 17 g daily p.r.n. 10. Senna 1 tablet at bedtime p.r.n. 11. Tramadol 50 mg every 4 hours p.r.n. pain. FOLLOWUP: I will be the following physician at [facility]. DISCHARGE CONDITION: She is being discharged in an improved condition. DIET: Regular. ACTIVITY: As per Ortho. WOUND CARE: Per Ortho. She is to receive physical therapy, occupational therapy. [id number]/[facility] #: [id number]
[2019-07-22 11:50] VITALS: BP 132/50
--- NOTE | 2019-07-22 12:49 | PN ---
Progress Note - Progress Note Date of Service: 07/22/19 SOAP: Subjective: []Patient was seen and examined at bedside. She feels fatigued though no other complaints. Denies CP, SOB, abd pain, nausea, dizziness or lightheadedness. Objective: []Gen: NAD, appears well LLE: Dressing was changed. There was mild dry serosanguinous drainage on the 4x4s. There is no active discharge and no erythema. Incision is well approximated. Thigh is soft. DF/PF intact, DP2+, sensation intact to light touch distally Calves supple and nontender without erythema, edema or palpable cords Assessment: POD 4 ORIF left femur periprosthetic fracture with cables, plate, screws, femoral strut allograft Plan: Physical therapy toe touch weight bearing left lower extremity Ancef x 3 days postop completed, now Keflex TID x 7 days Dressing changed today 07/22/19. Dressing can be changed every other day with 4x4s and a large amount of foam tape. Keep covered between showering until seeing Dr Grant 3 weeks post op. [place] remain in place until follow up appt Continue use of IS after DC Vital Signs Temp 100.2 F 07/22/19 11:49 Pulse 80 07/22/19 11:49 Resp 16 07/22/19 11:49 BP 132/50 07/22/19 11:49 Pulse Ox 93 07/22/19 11:49 Intake & Output 07/21/19 07/22/19 07/22/19 18:59 06:59 18:59 Intake Total 1479 184 9308 Output Total 900 570 200 Balance 471 -95 850 Intake: IV Fluids 741 690 NS 741 690 IVPB 110 ABX - CEFAZOLIN 110 Oral 520 475 360 Output: Urine 900 570 200 Other: Estimated Void Medium # Bowel Movements 1 Estimated Stool Amount Small # Voids 1 Laboratory Last Values WBC 8.5 10^3/uL (3.5-10.8) 07/21/19 04:51 RBC 3.18 10^6 /uL (3.70-4.87) L 07/21/19 04:51 Hgb 8.1 g/dL (12.0-16.0) L 07/22/19 04:29 Hct 24 % (35-47) L 07/22/19 04:29 MCV 81 fL (80-97) 07/21/19 04:51 MCH 28 pg (27-31) 07/21/19 04:51 MCHC 35 g/dL (31-36) 07/21/19 04:51 RDW 17 % (10-15) H 07/21/19 04:51 Plt Count 175 10^3/uL (150-450) 07/22/19 04:29 MPV 8.9 fL (7.4-10.4) 07/22/19 04:29 Neut % (Auto) 76.2 % 07/21/19 04:51 Lymph % (Auto) 8.2 % 07/21/19 04:51 [place] % (Auto) 14.8 % 07/21/19 04:51 Eos % (Auto) 0.6 % 07/21/19 04:51 Baso % (Auto) 0.2 % 07/21/19 04:51 Absolute Neuts (auto) 6.5 10^3/ul (1.5-7.7) 07/21/19 04:51 Absolute Lymphs (auto) 0.7 10^3/ul (1.0-4.8) L 07/21/19 04:51 Absolute Monos (auto) 1.3 10^3/ul (0-0.8) H 07/21/19 04:51 Absolute Eos (auto) 0.0 10^3/ul (0-0.6) 07/21/19 04:51 Absolute Basos (auto) 0.0 10^3/ul (0-0.2) 07/21/19 04:51 Absolute Nucleated RBC 0.0 10^3/ul 07/21/19 04:51 Nucleated RBC % 0.0 07/21/19 04:51 INR (Anticoag Therapy) 1.11 (0.82-1.09) H 07/18/19 08:25 APTT 30.9 seconds (26.0-38.0) 07/17/19 12:13 Sodium 138 mmol/L (135-145) 07/22/19 04:29 Potassium 3.5 mmol/L (3.5-5.0) 07/22/19 04:29 Chloride 107 mmol/L (101-111) 07/22/19 04:29 Carbon Dioxide 27 mmol/L (22-32) 07/22/19 04:29 Anion Gap 4 mmol/L (2-11) 07/22/19 04:29 BUN 10 mg/dL (6-24) 07/22/19 04:29 Creatinine 0.50 mg/dL (0.51-0.95) L 07/22/19 04:29 Est GFR ( Amer) 140.6 (>60) 07/22/19 04:29 Est GFR (Non-Af Amer) 116.2 (>60) 07/22/19 04:29 BUN/Creatinine Ratio 20.0 (8-20) 07/22/19 04:29 Glucose 129 mg/dL (70-100) H 07/22/19 04:29 Calcium 7.5 mg/dL (8.6-10.3) L 07/22/19 04:29 Total Bilirubin 0.50 mg/dL (0.2-1.0) 07/16/19 15:37 AST 17 U/L (13-39) 07/16/19 15:37 ALT 11 U/L (7-52) 07/16/19 15:37 Alkaline Phosphatase 83 U/L (34-104) 07/16/19 15:37 Total Protein 6.8 g/dL (6.4-8.9) 07/16/19 15:37 Albumin 3.6 g/dL (3.2-5.2) 07/16/19 15:37 Globulin 3.2 g/dL (2-4) 07/16/19 15:37 Albumin/Globulin Ratio 1.1 (1-3) 07/16/19 15:37 Urine Color Yellow 07/16/19 16:55 Urine Appearance Cloudy 07/16/19 16:55 Urine pH 9.0 (5-9) 07/16/19 16:55 Ur Specific [place] 1.012 (1.010-1.030) 07/16/19 16:55 Urine Protein Negative (Negative) 07/16/19 16:55 Urine Ketones Trace (Negative) A 07/16/19 16:55 Urine Blood Negative (Negative) 07/16/19 16:55 Urine Nitrate Negative (Negative) 07/16/19 16:55 Urine Bilirubin Negative (Negative) 07/16/19 16:55 Urine Urobilinogen Negative (Negative) 07/16/19 16:55 Ur Leukocyte Esterase Negative (Negative) 07/16/19 16:55 Urine Glucose Negative (Negative) 07/16/19 16:55 Urine Ascorbic Acid * (Negative) A 07/16/19 16:55 Blood Type AB Positive 07/18/19 08:25 Antibody Screen Negative 07/18/19 08:25 Crossmatch See Detail 07/18/19 08:25
[2019-07-22] MEDS: Acetaminophen TAB* 325 MG PO PRN (14:10)
== END 2019-07-22 14:55 | DRG 481 ==
LOC: ED 15:02 → SSU 21:16
PROVIDERS: ADMIT Internal Medicine; ATTEND Internal Medicine Geriatric Medicine
PROC: 0QU80KZ Supplement Right Femoral Shaft with Nonautologous Tissue Substitute, Open Approach (ICD-10-PCS; 2019-07-18)
PROC: 0QH904Z Insertion of Internal Fixation Device into Left Femoral Shaft, Open Approach (ICD-10-PCS; principal; 2019-07-18 19:00)
PROC: 30233N1 Transfusion of Nonautologous Red Blood Cells into Peripheral Vein, Percutaneous Approach (ICD-10-PCS; 2019-07-20)
DX: S72.302A Unspecified fracture of shaft of left femur, initial encounter for closed fracture (principal); M97.02XA Periprosthetic fracture around internal prosthetic left hip joint, initial encounter; W01.0XXA Fall on same level from slipping, tripping and stumbling without subsequent striking against object, initial encounter; Z96.643 Presence of artificial hip joint, bilateral; K57.90 Diverticulosis of intestine, part unspecified, without perforation or abscess without bleeding; M48.00 Spinal stenosis, site unspecified; D64.9 Anemia, unspecified; E78.5 Hyperlipidemia, unspecified; R11.0 Nausea; T40.2X5A Adverse effect of other opioids, initial encounter; Y92.239 Unspecified place in hospital as the place of occurrence of the external cause; Z85.3 Personal history of malignant neoplasm of breast; Z92.3 Personal history of irradiation; Y92.008 Other place in unspecified non-institutional (private) residence as the place of occurrence of the external cause; Z88.2 Allergy status to sulfonamides; Z28.21 Immunization not carried out because of patient refusal; Z91.048 Other nonmedicinal substance allergy status; Z79.899 Other long term (current) drug therapy; Z88.1 Allergy status to other antibiotic agents
CPT/HCPCS: 36415; 71045; 72192; 76000; 80048; 80053; 81003; 82565; 84520; 85014; 85018; 85025; 85049; 85610; 85730; 86850; 86900; 86901; 86922; 93005; 99285; A9270-GY; C1713; C1776; G8978-GP-CL; G8978-GP-CM; G8979-GP-CJ; G8979-GP-CK; G8987-GO-CK; G8988-GO-CI; J0690; J1100; J1644; J1650; J2250; J2270; J2405; J2704; J3010; J3490; P9040